=== PATIENT | female | born 1945 | race Caucasian/White ===

== ENCOUNTER → 2018-01-21 08:11 | Outpatient (CLI) | payer MEDICARE, OTHER, SELFPAY ==
--- NOTE | 2018-01-21 | DI.MG.S_ITS ---
BILATERAL DIGITAL SCREENING MAMMOGRAM 3D/2D WITH CAD: 01/21/2018 CLINICAL: Routine screening. Comparison is made to exams dated: 01/18/2017 mammogram, 01/18/2016 mammogram, and 12/11/2014 mammogram - [facility]. The tissue of both breasts is extremely dense, which lowers the sensitivity of mammography. Current study was also evaluated with a Computer Aided Detection (CAD) system. No significant masses, calcifications, or other findings are seen in either breast. There has been no significant interval change. IMPRESSION: NEGATIVE There is no mammographic evidence of malignancy. A 1 year screening mammogram is recommended. This exam was interpreted at Station ID: [id number]. NOTE: For mammograms, a report in lay terms will be sent to the patient. Approximately 15% of breast malignancies will not be visualized mammographically. In the management of a palpable breast mass, a negative mammogram must not discourage biopsy of a clinically suspicious lesion. Electronically Signed By: Rudy franco/rocio:01/21/2018 14:35:03 letter sent: Normal Exam ACR BI-RADS Category 1: Negative 3341F
== END ==
PROVIDERS: Family Provider Internal Medicine; PCP Internal Medicine; Visit Provider Internal Medicine
DX: Z12.31 Encounter for screening mammogram for malignant neoplasm of breast (principal)
CPT/HCPCS: 77063; 77067

== ENCOUNTER → 2018-04-25 09:29 | Outpatient (CLI) | payer MEDICARE, OTHER, SELFPAY ==
--- NOTE | 2018-04-25 | DI.RAD.S_ITS ---
PROCEDURE: XR SKULL<4V INDICATIONS: OTHER ACQUIRED DEFORMITY OF HEAD TECHNIQUE: 3 view(s) of the skull acquired. COMPARISON: None. FINDINGS: Bones: No fractures. No suspicious bony lesions. Mild focal skull thickening in the left frontal area, correlating with palpable abnormality. Visualized sinuses appear clear. Soft tissues: No soft tissue calcifications. No suspicious soft tissue densities. IMPRESSION: Mild focal skull thickening deep to the skin marker, correlating with the palpable abnormality. The finding is likely benign. If there is continued progressive enlargement, further evaluation with CT is suggested. Dictated by: Maria Alejandra Vasquez M.D. on 04/25/2018 at 12:57 Approved by: Maria Alejandra Vasquez M.D. on 04/25/2018 at 13:00
== END ==
PROVIDERS: Family Provider Internal Medicine; PCP Internal Medicine; Visit Provider Internal Medicine
DX: M95.2 Other acquired deformity of head (principal)
CPT/HCPCS: 70250

== ENCOUNTER → 2019-01-28 11:42 | Outpatient (CLI) | payer MEDICARE, OTHER, SELFPAY ==
--- NOTE | 2019-01-28 | DI.MG.S_ITS ---
BILATERAL DIGITAL SCREENING MAMMOGRAM 3D/2D WITH CAD: 01/28/2019 CLINICAL: Routine screening. Comparison is made to exams dated: 01/21/2018 mammogram, 01/18/2017 mammogram, and 01/18/2017 mammogram - [facility]. The tissue of both breasts is extremely dense, which lowers the sensitivity of mammography. Current study was also evaluated with a Computer Aided Detection (CAD) system. No significant masses, calcifications, or other findings are seen in either breast. There has been no significant interval change. IMPRESSION: NEGATIVE There is no mammographic evidence of malignancy. A 1 year screening mammogram is recommended. This exam was interpreted at Station ID: [id number]. NOTE: For mammograms, a report in lay terms will be sent to the patient. Approximately 15% of breast malignancies will not be visualized mammographically. In the management of a palpable breast mass, a negative mammogram must not discourage biopsy of a clinically suspicious lesion. Electronically Signed By: Jose patino/rocio:01/28/2019 18:45:19 letter sent: Normal Exam ACR BI-RADS Category 1: Negative 3341F
== END ==
PROVIDERS: Family Provider Internal Medicine; PCP Internal Medicine; Visit Provider Internal Medicine
DX: Z12.31 Encounter for screening mammogram for malignant neoplasm of breast (principal)
CPT/HCPCS: 77063; 77067

== ENCOUNTER → 2020-01-30 10:58 | Outpatient (CLI) | payer MEDICARE, OTHER, SELFPAY ==
--- NOTE | 2020-01-30 | DI.MG.S_ITS ---
BILATERAL DIGITAL SCREENING MAMMOGRAM 3D/2D WITH CAD: 01/30/2020 CLINICAL: Routine screening. Comparison is made to exams dated: 01/28/2019 mammogram, 01/21/2018 mammogram, and 01/18/2017 mammogram - [facility]. The tissue of both breasts is extremely dense, which lowers the sensitivity of mammography. Current study was also evaluated with a Computer Aided Detection (CAD) system. No significant masses, calcifications, or other findings are seen in either breast. There has been no significant interval change. IMPRESSION: NEGATIVE There is no mammographic evidence of malignancy. A 1 year screening mammogram is recommended. This exam was interpreted at Station ID: [id number]. NOTE: For mammograms, a report in lay terms will be sent to the patient. Approximately 15% of breast malignancies will not be visualized mammographically. In the management of a palpable breast mass, a negative mammogram must not discourage biopsy of a clinically suspicious lesion. Electronically Signed By: Gibran Oviedo M.D., jr/rocio:01/30/2020 14:03:26 letter sent: Normal Exam ACR BI-RADS Category 1: Negative 3341F
== END ==
PROVIDERS: Family Provider Internal Medicine; PCP Internal Medicine; Referring Provider Internal Medicine; Visit Provider Internal Medicine
DX: Z12.31 Encounter for screening mammogram for malignant neoplasm of breast (principal)
CPT/HCPCS: 77063; 77067

== ENCOUNTER → 2020-09-24 18:37 | Outpatient (ROUT) | payer MEDICARE, OTHER, SELFPAY ==
[2020-09-24 19:18] LABS: HEMOLYSIS < 15 (0-50); Potassium 4.2 mmol/L (3.4-5.1)
[2020-09-24 19:19] LABS: Aspartate Aminotransferase 33 IU/L (14-36); BUN Creatinine Ratio 30.4 (6-22); Blood Urea Nitrogen 17 mg/dL (7-17); Carbon Dioxide 32 mmol/L (22-32); Chloride 99 mmol/L (98-107); Cholesterol 143 mg/dL (140-199); Estimated Glomerular Filt Rate > 60.0 mL/min (>60); Glucose 115 mg/dL (80-110); HDL Cholesterol 71 mg/dL (40-60); LDL Cholesterol Calculated 60 mg/dL (<100); Sodium 139 mmol/L (137-145); Triglycerides 59 mg/dL (35-150)
[2020-09-24 19:42] LABS: TSH w/ Reflex to FT4 1.18 uIU/mL (0.47-4.68)
== END ==
PROVIDERS: Family Provider Internal Medicine; PCP Internal Medicine; Visit Provider Internal Medicine
DX: E78.2 Mixed hyperlipidemia (principal)
CPT/HCPCS: 80048; 80061; 84443; 84450

== ENCOUNTER → 2020-10-15 09:39 | Outpatient (CLI) | payer MEDICARE, OTHER, SELFPAY | PROVIDERS: Family Provider Internal Medicine; PCP Internal Medicine; Referring Provider Internal Medicine; Visit Provider Internal Medicine | DX: M85.851 Other specified disorders of bone density and structure, right thigh (principal); Z78.0 Asymptomatic menopausal state | CPT/HCPCS: 77080 ==

== ENCOUNTER → 2020-11-25 07:09 | Outpatient (CLI) | payer MEDICARE, OTHER, SELFPAY ==
[2020-11-25 08:00] LABS: BUN Creatinine Ratio 22.8 (6-22); Blood Urea Nitrogen 13 mg/dL (7-17); Calcium 9.2 mg/dL (8.4-10.2); Carbon Dioxide 32 mmol/L (22-32); Chloride 97 mmol/L (98-107); Estimated Glomerular Filt Rate > 60.0 mL/min (>60); Glucose 91 mg/dL (80-110); HEMOLYSIS < 15 (0-50); Potassium 3.9 mmol/L (3.4-5.1); Sodium 135 mmol/L (137-145)
== END ==
PROVIDERS: Family Provider Internal Medicine; PCP Internal Medicine; Referring Provider Internal Medicine; Visit Provider Internal Medicine
DX: E78.2 Mixed hyperlipidemia (principal)
CPT/HCPCS: 80048

== ENCOUNTER → 2021-02-15 14:42 | Outpatient (CLI) | payer MEDICARE, OTHER, SELFPAY ==
--- NOTE | 2021-02-15 14:45 | DI.MG.S_ITS ---
BILATERAL DIGITAL SCREENING MAMMOGRAM 3D/2D WITH CAD: 02/15/2021 CLINICAL: Routine screening. Comparison is made to exams dated: 01/30/2020 mammogram, 01/28/2019 mammogram, and 01/21/2018 mammogram - [facility]. The tissue of both breasts is extremely dense, which lowers the sensitivity of mammography. Current study was also evaluated with a Computer Aided Detection (CAD) system. No significant masses, calcifications, or other findings are seen in either breast. There has been no significant interval change. IMPRESSION: NEGATIVE There is no mammographic evidence of malignancy. A 1 year screening mammogram is recommended. This exam was interpreted at Station ID: [id number]. NOTE: For mammograms, a report in lay terms will be sent to the patient. Approximately 15% of breast malignancies will not be visualized mammographically. In the management of a palpable breast mass, a negative mammogram must not discourage biopsy of a clinically suspicious lesion. Electronically Signed By: Ambrosio hartmann/rocio:02/15/2021 16:19:30 letter sent: Normal Exam ACR BI-RADS Category 1: Negative 3341F
== END ==
PROVIDERS: PCP Internal Medicine; Referring Provider Internal Medicine; Visit Provider Internal Medicine
DX: Z12.31 Encounter for screening mammogram for malignant neoplasm of breast (principal)
CPT/HCPCS: 77063; 77067

== ENCOUNTER → 2021-12-16 09:47 | Outpatient (CLI) | payer MEDICARE, OTHER, SELFPAY ==
[2021-12-16 10:19] LABS: Hematocrit 38.5 % (36-46); Hemoglobin 12.9 g/dL (12.0-16.0); Mean Corpuscular HGB Conc 33.6 % (30-36); Mean Corpuscular Hemoglobin 30.6 PG (26-34); Mean Corpuscular Volume 91.2 fL (80-100); Platelet Count 219 X10^3/uL (150-400); Red Blood Cell Count 4.22 X10^6/uL (4.0-5.2); Red Cell Distribution Width 13.8 % (11.6-14.8); White Blood Cell Count 6.4 X10^3/uL (4.5-11.0)
[2021-12-16 11:11] LABS: Alanine Aminotransferase 20 IU/L (<35); Albumin 4.1 g/dL (3.5-5.0); Albumin Globulin Ratio 1.3 (1.0-2.8); Alkaline Phosphatase 56 U/L (38-126); Aspartate Aminotransferase 27 IU/L (14-36); BUN Creatinine Ratio 31.7 (6-22); Bilirubin Total 0.4 mg/dL (0.2-1.3); Blood Urea Nitrogen 19 mg/dL (7-17); Calcium 9.2 mg/dL (8.4-10.2); Carbon Dioxide 31 mmol/L (22-32); Chloride 100 mmol/L (98-107); Cholesterol 136 mg/dL (140-199); Estimated Glomerular Filt Rate > 60 mL/min (>60); Globulin 3.1 g/dL (1.7-4.1); Glucose 82 mg/dL (80-110); HDL Cholesterol 67 mg/dL (40-60); HEMOLYSIS < 15 (0-50); LDL Cholesterol Calculated 57 mg/dL (<100); Potassium 4.1 mmol/L (3.4-5.1); Sodium 137 mmol/L (137-145); Total Protein 7.2 g/dL (6.3-8.2); Triglycerides 61 mg/dL (35-150)
[2021-12-16 11:49] LABS: TSH w/ Reflex to FT4 1.11 uIU/mL (0.47-4.68)
== END ==
PROVIDERS: PCP Internal Medicine; Referring Provider Internal Medicine; Visit Provider Internal Medicine
DX: E78.2 Mixed hyperlipidemia (principal); M85.80 Other specified disorders of bone density and structure, unspecified site
CPT/HCPCS: 36415; 80053; 80061; 84443; 85027

== ENCOUNTER → 2022-02-23 07:56 | Outpatient (CLI) | payer MEDICARE, OTHER, SELFPAY ==
--- NOTE | 2022-02-23 | DI.MG.S_ITS ---
BILATERAL DIGITAL SCREENING MAMMOGRAM 3D/2D WITH CAD: 02/23/2022 CLINICAL: Routine screening. Comparison is made to exams dated: 02/15/2021 mammogram, 01/30/2020 mammogram, and 01/28/2019 mammogram - [facility]. Both breasts are extremely dense, which lowers the sensitivity of mammography (category d />75% glandular tissue). Current study was also evaluated with a Computer Aided Detection (CAD) system. No significant masses, calcifications, or other findings are seen in either breast. There has been no significant interval change. IMPRESSION: NEGATIVE There is no mammographic evidence of malignancy. A 1 year screening mammogram is recommended. Based on the Tyrer Cuzick model (a risk assessment model) the patient's lifetime risk is 6.8% and her 10 year risk is 0.0%. According to the ACR, ACS, and NCCN guidelines, an annual breast MRI exam along with mammogram is recommended if the patient's lifetime risk is 20% or greater. This exam was interpreted at Station ID: [id number]. NOTE: For mammograms, a report in lay terms will be sent to the patient. Approximately 15% of breast malignancies will not be visualized mammographically. In the management of a palpable breast mass, a negative mammogram must not discourage biopsy of a clinically suspicious lesion. Electronically Signed By: June gallardo/rocio:02/23/2022 09:51:47 letter sent: Normal Exam ACR BI-RADS Category 1: Negative 3341F
== END ==
PROVIDERS: PCP Internal Medicine; Referring Provider Internal Medicine; Visit Provider Internal Medicine
DX: Z12.31 Encounter for screening mammogram for malignant neoplasm of breast (principal)
CPT/HCPCS: 77063; 77067

== ENCOUNTER → 2022-06-08 09:12 | Outpatient (CLI) | payer MEDICARE, OTHER, SELFPAY ==
[2022-06-08 12:02] LABS: Alanine Aminotransferase 25 IU/L (<35); Albumin 4.3 g/dL (3.5-5.0); Albumin Globulin Ratio 1.2 (1.0-2.8); Alkaline Phosphatase 75 U/L (38-126); Aspartate Aminotransferase 32 IU/L (14-36); BUN Creatinine Ratio 22.2 (6-22); Bilirubin Total 0.6 mg/dL (0.2-1.3); Blood Urea Nitrogen 12 mg/dL (7-17); Calcium 10.4 mg/dL (8.4-10.2); Carbon Dioxide 31 mmol/L (22-32); Chloride 98 mmol/L (98-107); Estimated Glomerular Filt Rate > 60 mL/min (>60); Globulin 3.5 g/dL (1.7-4.1); Glucose 83 mg/dL (80-110); HEMOLYSIS < 15 (0-50); Potassium 4.4 mmol/L (3.4-5.1); Sodium 136 mmol/L (137-145); Total Protein 7.8 g/dL (6.3-8.2)
[2022-06-08 12:17] LABS: Vitamin D 25 Hydroxy (D3) 56.6 ng/mL (30.0-100.0)
== END ==
PROVIDERS: PCP Internal Medicine; Referring Provider Internal Medicine; Visit Provider Internal Medicine
DX: E55.9 Vitamin D deficiency, unspecified (principal); M85.89 Other specified disorders of bone density and structure, multiple sites
CPT/HCPCS: 36415; 80053; 82306

== ENCOUNTER → 2022-07-17 11:40 | Outpatient (CLI) | payer MEDICARE, OTHER, SELFPAY ==
[2022-07-17 12:54] LABS: BUN Creatinine Ratio 26.2 (6-22); Blood Urea Nitrogen 16 mg/dL (7-17); Calcium 9.4 mg/dL (8.4-10.2); Carbon Dioxide 31 mmol/L (22-32); Chloride 99 mmol/L (98-107); Estimated Glomerular Filt Rate > 60 mL/min (>60); Glucose 98 mg/dL (80-110); HEMOLYSIS < 15 (0-50); Sodium 138 mmol/L (137-145)
== END ==
PROVIDERS: PCP Internal Medicine; Referring Provider Internal Medicine; Visit Provider Internal Medicine
DX: E78.2 Mixed hyperlipidemia (principal); M85.89 Other specified disorders of bone density and structure, multiple sites
CPT/HCPCS: 36415; 80048

== ENCOUNTER 2022-12-11 11:18 | Day surgery (SDC) | payer MEDICARE, OTHER, SELFPAY ==
--- NOTE | 2022-12-11 | PATH_ITS ---
[facility] Accession Number: [id number] No. of containers..01 Tissue . 01 Material submitted: . colon - TRANSVERSE COLON POLYP . 01 Diagnosis: Transverse Colon, Polypectomy: Tubular adenoma, two fragments. MRV 12/15/2022 1513 Local . 01 Electronically signed: . Latricia Alonso MD, Pathologist NPI- [id number] . 01 Gross description: . The specimen is received in formalin labeled with the patient's name, , and transverse polyp consists of two hernandez soft tissue fragments measuring 0.2 cm each in greatest dimension. Submitted entirely in cassette A1. ([id number]) /MRV 12/13/2022 1830 Local . 01 Pathologist provided ICD-10: D12.3 . 01 CPT . 525014 Specimen Comment: A courtesy copy of this report has been sent to [phone] Performed at: 01 [facility] [address] [place] [address] Suite [facility] [place], [place], [place] [id number] MD Mohinder Zamora MD Phone: [phone]
[2022-12-11 11:50] VITALS: BMI 24.9
[2022-12-11 11:57] VITALS: BP 128/70; PULSE 83; RESP 17; TEMP 36.9; O2SAT 97
[2022-12-11] MEDS: LACTATED RINGERS 1,000 ML 42 ML IV (12:06)
--- NOTE | 2022-12-11 12:07 | P.HP_ITS ---
History of Present Illness History of Present Illness Date Patient Seen: 12/11/22 Time Patient Seen: 12:07 Chief complaint: SDC Narrative: Family history of colon cancer personal history of colon polyps here for colonoscopy today [facility] Medical History Allergic rhinitis Chronic low back pain Family history of colon cancer Glaucoma History of colonic polyps Menopausal syndrome Mixed hyperlipidemia Osteopenia Right rotator cuff tendonitis Family History Father Cancer Mother Cancer Brother Parkinson's disease Social History Smoking Status: Never smoker alcohol intake: current Meds Home Medications and Allergies Home Medications Medication Instructions Recorded Confirmed Type ascorbic acid (vitamin C) 1,000 mg 1,000 mg PO DAILY 12/15/21 12/11/22 History tablet carboxymethylcellulose sodium 1 % 1 drp EYE-BOTH BEDTIME 12/15/21 12/11/22 History eye gel in a dropperette (Refresh Celluvisc) cholecalciferol (vitamin D3) 50 50 mcg PO DAILY 12/15/21 12/11/22 History mcg (2,000 unit) capsule cyanocobalamin (vitamin B-12) 1,000 mcg PO DAILY 12/15/21 12/11/22 History 1,000 mcg capsule cyclosporine 0.05 % eye drops in a 1 drp EYE-BOTH BID 12/15/21 12/11/22 History dropperette (Restasis) docusate sodium 100 mg capsule 100 mg PO DAILY 12/15/21 12/11/22 History (Stool Softener) eyelid cleanser combination 7 1 applic topical DAILY 12/15/21 12/11/22 History (Ocusoft Lid Scrub Original topical foam) flaxseed oil 1,000 mg capsule 1,000 mg PO DAILY 12/15/21 12/11/22 History multivitamin 1 tab PO DAILY 12/15/21 12/11/22 History peg 400-propylene glycol 0.4 %-0.3 1 drp EYE-BOTH DAILY PRN Dry Eyes 12/15/21 12/11/22 History % eye drops (Systane (propylene glycol)) rosuvastatin 10 mg tablet See Rx Instructions .Route 04/03/22 12/11/22 Rx .COMPLEX #90 tabs triamcinolone acetonide 0.5 % 1 applic topical 3XW 06/08/22 12/11/22 History topical cream estradiol 0.01% (0.1 mg/gram) 1 appful vaginal 2XW #42.5 grams 11/16/22 12/11/22 Rx vaginal cream Allergies Allergy/AdvReac Type Severity Reaction Status Date / Time amoxicillin [AMOXICILLIN] Allergy Unknown Rash Verified 12/11/22 11:46 Review of Systems Review of Systems ROS: Yes All systems reviewed with the patient and are negative except as otherwise documented Exam Vital Signs (past 8 hours): - 12/11/22 11:57 Temperature 98.5 F Pulse Rate 83 Respiratory Rate 17 Blood Pressure 128/70 Pulse Oximetry 97 Const General: cooperative HENMT Head: normal to inspection Eyes General: appearance normal, both eyes and all related structures Neck Neck: normal visual inspection Chest Chest: normal inspection of the chest Resp Effort & Inspection: normal respiratory effort Cardio Rate: regular rate GI Inspection: normal to inspection Skin General: no rashes or lesions noted Neuro General: patient alert and patient awake Extrem General: normal to inspection and no pedal edema Psych Appearance: grossly normal Assessment & Plan Assessment & Plan narrative: 76-year-old female with a family history of colon cancer and a personal history of colon polyps. Colonoscopy is pursued today.
--- NOTE | 2022-12-11 12:08 | PM.PREOP ---
Pre-operative Note Interval Note History & Physical reviewed/Exam performed by Physician: Yes Changes to H&P: No ASA Class (for procedural sedation): II
--- NOTE | 2022-12-11 13:17 | PM.OP.COLON ---
Operative Date/Time/Diagnoses Date of procedure: 12/11/22 Time of procedure: 13:17 Pre-op diagnosis: Personal history of colon polyps family history of colon cancer. Post-op diagnosis: same Procedure & Clinicians Study performed: Colonoscopy with cold forceps polypectomy Same procedure as scheduled: Yes Indications: Personal history of colon polyps family history of colon cancer. Surgeon: Dario Sanchez Procedure Notes SCOAP/Timeout: Done Procedure in detail: After the risks and benefits were explained, written and verbal informed consent was obtained. The patient was brought into the procedure room and placed into the left lateral decubitus position. Please see anesthesia notes for sedation details. Digital rectal examination was accomplished. The scope was introduced into the patient and advanced under direct visualization to the cecum as identified by the appendiceal orifice and ileocecal valve. The scope was slowly withdrawn to carefully examine the mucosa for any defects or lesions. Comprehensive imaging was accomplished throughout the rectum including the dentate line. The colon was decompressed, the scope was then removed from the patient who tolerated the procedure well. Pediatric colonoscope Bowel prep adequate Scope withdrawal time: 7 minutes Sedation minutes: 20 Complications: none Impression: The patient had extensive diverticulosis all through the sigmoid. The colon was moderately tortuous and navigation was somewhat challenging. In the ascending colon there was a diminutive 4 mm polyp removed with cold forceps. No other significant pathology was appreciated throughout. Endoscopic diagnosis 1. Small colon polyp 2. Diverticulosis Post-procedure Plan for aftercare: 1. Await histopathology. 2. Consider repeat colonoscopy 5 years in light of family history. Disposition: PACU
[2022-12-11 13:21] VITALS: BP 90/44; PULSE 60; RESP 15; TEMP 36.7; O2SAT 95
[2022-12-11 13:26] VITALS: BP 100/46; PULSE 61; RESP 11; TEMP 36.7; O2SAT 97
[2022-12-11 13:33] VITALS: BP 115/45; PULSE 62; RESP 19; TEMP 36.7; O2SAT 99
[2022-12-11 13:38] VITALS: BP 123/58; PULSE 61; RESP 14; O2SAT 97
[2022-12-11 13:48] VITALS: BP 131/69; PULSE 62; RESP 18; TEMP 36.7; O2SAT 97
== END 2022-12-11 13:53 | disposition home or self-care (01) ==
PROVIDERS: PCP Internal Medicine; Referring Provider Internal Medicine Gastroenterology; Visit Provider Internal Medicine Gastroenterology
PROC: 0DJD8ZZ Inspection of Lower Intestinal Tract, Via Natural or Artificial Opening Endoscopic (ICD-10-PCS; CPT 45378; principal; 2022-12-11 12:30)
DX: Z12.11 Encounter for screening for malignant neoplasm of colon (principal); Z86.010 Personal history of colon polyps; Z80.0 Family history of malignant neoplasm of digestive organs; K57.30 Diverticulosis of large intestine without perforation or abscess without bleeding; D12.3 Benign neoplasm of transverse colon
CPT/HCPCS: 45380; J2704

== ENCOUNTER → 2022-12-22 08:07 | Outpatient (CLI) | payer MEDICARE, OTHER, SELFPAY ==
[2022-12-22 09:33] LABS: Aspartate Aminotransferase 28 IU/L (14-36); BUN Creatinine Ratio 18.2 (6-22); Blood Urea Nitrogen 10 mg/dL (7-17); Calcium 8.8 mg/dL (8.4-10.2); Carbon Dioxide 30 mmol/L (22-32); Chloride 98 mmol/L (98-107); Cholesterol 139 mg/dL (140-199); Estimated Glomerular Filt Rate > 60 mL/min (>60); Glucose 84 mg/dL (80-110); HDL Cholesterol 60 mg/dL (40-60); HEMOLYSIS < 15 (0-50); LDL Cholesterol Calculated 68 mg/dL (<100); Potassium 4.4 mmol/L (3.4-5.1); Sodium 133 mmol/L (137-145); Triglycerides 57 mg/dL (35-150)
== END ==
PROVIDERS: PCP Internal Medicine; Referring Provider Internal Medicine; Visit Provider Internal Medicine
DX: E78.2 Mixed hyperlipidemia (principal); M85.80 Other specified disorders of bone density and structure, unspecified site
CPT/HCPCS: 36415; 80048; 80061; 84450

== ENCOUNTER → 2023-02-27 | Outpatient (CLI) | payer MEDICARE, OTHER, SELFPAY ==
--- NOTE | 2023-02-27 | DI.MG.S_ITS ---
BILATERAL DIGITAL SCREENING MAMMOGRAM 3D/2D WITH CAD: 02/27/2023 CLINICAL: Routine screening. Comparison is made to exams dated: 02/23/2022 mammogram, 02/15/2021 mammogram, and 01/30/2020 mammogram - [facility]. Both breasts are extremely dense, which lowers the sensitivity of mammography (category d />75% glandular tissue). Current study was also evaluated with a Computer Aided Detection (CAD) system. There are benign calcifications in both breasts. No significant masses, calcifications, or other findings are seen in either breast. There has been no significant interval change. IMPRESSION: BENIGN There is no mammographic evidence of malignancy. A 1 year screening mammogram is recommended. Based on the Tyrer Cuzick model (a risk assessment model) the patient's lifetime risk is 5.9% and her 10 year risk is 0.0%. According to the ACR, ACS, and NCCN guidelines, an annual breast MRI exam along with mammogram is recommended if the patient's lifetime risk is 20% or greater. This exam was interpreted at Station ID: [id number]. NOTE: For mammograms, a report in lay terms will be sent to the patient. Approximately 15% of breast malignancies will not be visualized mammographically. In the management of a palpable breast mass, a negative mammogram must not discourage biopsy of a clinically suspicious lesion. Electronically Signed By: Edgar horne/rocio:03/04/2023 14:02:19 letter sent: Normal Exam ACR BI-RADS Category 2: Benign Finding(s) 3342F
== END ==
LOC: MAMMO 08:12
PROVIDERS: PCP Internal Medicine; Referring Provider Internal Medicine; Visit Provider Internal Medicine
DX: Z12.31 Encounter for screening mammogram for malignant neoplasm of breast (principal)
CPT/HCPCS: 77063; 77067

== ENCOUNTER 2023-05-06 19:11 | Emergency (ER) | payer MEDICARE, OTHER, SELFPAY ==
[2023-05-06 19:21] VITALS: BP 185/75; PULSE 79; RESP 20; TEMP 36.8; O2SAT 98; BMI 25.7
[2023-05-06 19:58] LABS: Bacteria Urine Moderate (10-30); Culture Indicated Urine Specimen Cultured; RBC Urine >100/HPF (0-5/HPF); Squamous Epithelial Cell Urine 0-1 /HPF (0-5/HPF); Transitional Epi Cells Urine 1-5/HPF (0-5/HPF); WBC Urine 30-100/HPF (0-5/HPF)
[2023-05-06 21:28] VITALS: BP 150/68; PULSE 75; TEMP 36.4; O2SAT 98
[2023-05-06] MEDS: CEFDINIR 300 MG CAPSULE PO (21:31)
--- NOTE | 2023-05-07 00:09 | ED_ITS ---
HPI - Female Genitourinary General Chief complaint: Urogenital-Female Stated complaint: THINKS POSS UTI Time Seen by Provider: 05/06/23 21:11 Source: patient Mode of arrival: Ambulatory History of Present Illness HPI Narrative: 77-year-old female with history of occasional urinary tract infections in the past presenting with dysuria urgency and frequency beginning today. She does not have any fever she does not have flank pain vomiting or shaking chills. She is not noted any blood in her urine. Related Data Home Medications Medication Instructions Recorded Confirmed ascorbic acid (vitamin C) 1,000 mg 1,000 mg PO DAILY 12/15/21 12/18/22 tablet carboxymethylcellulose sodium 1 % 1 drp EYE-BOTH BEDTIME 12/15/21 12/18/22 eye gel in a dropperette (Refresh Celluvisc) cholecalciferol (vitamin D3) 50 50 mcg PO DAILY 12/15/21 12/18/22 mcg (2,000 unit) capsule cyanocobalamin (vitamin B-12) 1,000 mcg PO DAILY 12/15/21 12/18/22 1,000 mcg capsule cyclosporine 0.05 % eye drops in a 1 drp EYE-BOTH BID 12/15/21 12/18/22 dropperette (Restasis) docusate sodium 100 mg capsule 100 mg PO DAILY 12/15/21 12/18/22 (Stool Softener) eyelid cleanser combination 7 1 applic topical DAILY 12/15/21 12/18/22 (Ocusoft Lid Scrub Original topical foam) flaxseed oil 1,000 mg capsule 1,000 mg PO DAILY 12/15/21 12/18/22 multivitamin 1 tab PO DAILY 12/15/21 12/18/22 peg 400-propylene glycol 0.4 %-0.3 1 drp EYE-BOTH DAILY PRN Dry Eyes 12/15/21 12/18/22 % eye drops (Systane (propylene glycol)) triamcinolone acetonide 0.5 % 1 applic topical 3XW 06/08/22 12/18/22 topical cream Previous Rx's Medication Instructions Recorded estradiol 0.01% (0.1 mg/gram) 1 appful vaginal 2XW #42.5 grams 12/18/22 vaginal cream rosuvastatin 10 mg tablet See Rx Instructions .Route 09/27/23 .COMPLEX #90 tabs cephalexin 500 mg capsule 500 mg PO QID 5 days #20 caps 05/06/23 Allergies Allergy/AdvReac Type Severity Reaction Status Date / Time amoxicillin [AMOXICILLIN] Allergy Unknown Rash Verified 05/06/23 19:29 Patient History Medical History Allergic rhinitis Chronic low back pain Family history of colon cancer Glaucoma History of colonic polyps Menopausal syndrome Mixed hyperlipidemia Osteopenia Right rotator cuff tendonitis Family History Father Cancer Mother Cancer Brother Parkinson's disease alcohol intake frequency: a few times a week Substance Use Type: does not use Exam Initial Vital Signs Initial Vital Signs: Vital Signs Temperature 98.3 F 05/06/23 19:21 Pulse Rate 79 05/06/23 19:21 Respiratory Rate 20 05/06/23 19:21 Blood Pressure 185/75 H 05/06/23 19:21 Pulse Oximetry 98 05/06/23 19:21 Oxygen Delivery Method Room Air 05/06/23 19:21 Const General: cooperative HENMT Head: normocephalic and atraumatic Teeth and gingiva: dentition normal Eyes Pupils: PERRL EOM: EOM intact bilaterally Chest Chest: normal inspection of the chest Resp Effort & Inspection: normal respiratory effort and able to speak in complete sentences Cardio Rate: regular rate GI Inspection: non-distended Palpation: soft, No guarding, No pulsatile mass and No tender Auscultation: normal bowel sounds Back/Spine/Pelvis Back: No CVA tenderness Cervical Spine: cervical ROM normal Thoracic/Lumbar Spine: thoracic and lumbar spine normal to inspection Skin General: no rashes or lesions noted Neuro General: patient alert and patient oriented x3 Extrem General: full ROM Psych Appearance: well kempt Mental Status: mental status grossly normal Attitude: cooperative Course Orders Ordered: ED Orders 05/06/23 19:33 Urine Culture Stat Urine Microscopic Stat Discontinued Medications Cefdinir (Cefdinir 300 Mg Capsule) 300 mg PO NOW ONE Stop: 05/06/23 21:19 Last Admin: 05/06/23 21:31 Dose: 300 mg Documented By: HNG Vital Signs Vital signs: Vital Signs - 8 hr 05/06/23 19:21 05/06/23 21:28 Temperature 98.3 F 97.6 F Pulse Rate 79 75 Respiratory Rate 20 Blood Pressure 185/75 H 150/68 H Pulse Oximetry 98 98 Oxygen Delivery Method Room Air Room Air MDM - Female Genitourinary Lab Data Lab results narrative: Urinalysis shows pyuria and bacteriuria as well as red cells consistent with infection Labs: Lab Results 05/06/23 Range/Units 19:33 Urine RBC >100/hpf H (0-5/HPF) Urine WBC 30-100/hpf H (0-5/HPF) Ur Squamous Epith Cells 0-1 /hpf (0-5/HPF) Ur Transition Epith Cell 1-5/hpf (0-5/HPF) Urine Bacteria Moderate (10-30) H (None) Ur Culture Indicated? Specimen cultured Urine Dip Bedside Urine Glucose Negative Bedside Urine Bilirubin - Negative Bedside Urine Ketone - Negative Urine Specific [place] 1.010 Bedside Urine Occult Blood +++ Bedside Urine pH 7.5 Bedside Urine Protein +/- 15 Bedside Urine Urobilinogen - Negative Bedside Urine Nitrite - Negative Bedside Urine Leukocytes +++ 500 Esterase MDM Narrative Medical decision making narrative: 77-year-old female who enjoys good health. She presents today with urinary symptoms without evidence of systemic illness, I considered but do not suspect pyelonephritis or ureteral stone. I have empirically started her on antibiotics urine culture is pending. Indications for return to the emergency department were reviewed. Discharge Plan Departure Patient Disposition: Home Clinical Impression: Urinary tract infection Instructions: DI for Urinary Tract Infection (UTI) Activity Restrictions/Additional Instructions: We are treating you tonight for urinary tract infection. We have started antibiotics here in the emergency department and I have sent a prescription for an antibiotic here pharmacy. Take the full prescribed course. If you are having fevers flank pain vomiting shaking chills or other acute symptoms recheck in the emergency department. It is safe to use the as though that you already have for symptoms of dysuria until the antibiotic works which should be within 24 hours. I recommend you follow-up soon with your primary care provider for a recheck. Prescriptions: New cephalexin 500 mg capsule 500 mg PO QID 5 Days Qty: 20 0RF No Action rosuvastatin 10 mg tablet See Rx Instructions .ROUTE .COMPLEX Qty: 90 3RF Dose Instruction: TAKE ONE TABLET BY MOUTH ONE TIME DAILY Rx Instructions: TAKE ONE TABLET BY MOUTH ONE TIME DAILY cyclosporine [Restasis] 0.05 % dropperette 1 drp EYE-BOTH BID Patient Comments: Instill one drop into both eyes twice daily. cholecalciferol (vitamin D3) 50 mcg (2,000 unit) capsule 50 mcg PO DAILY multivitamin Tablet 1 tab PO DAILY Ocusoft Lid Scrub Original Foam 1 applic topical DAILY carboxymethylcellulose sodium [Refresh Celluvisc] 1 % dropperette,gel 1 drp EYE-BOTH BEDTIME docusate sodium [Stool Softener] 100 mg capsule 100 mg PO DAILY Systane (propylene glycol) 0.4-0.3 % drops 1 drp EYE-BOTH DAILY PRN (Reason: Dry Eyes) ascorbic acid (vitamin C) 1,000 mg tablet 1,000 mg PO DAILY cyanocobalamin (vitamin B-12) 1,000 mcg capsule 1,000 mcg PO DAILY flaxseed oil 1,000 mg capsule 1,000 mg PO DAILY Rx Instructions: administer with a meal triamcinolone acetonide 0.5 % cream 1 applic topical 3XW Patient Comments: P Rx Instructions: BID times twice weekly estradiol 0.01 % (0.1 mg/gram) cream 1 appful vaginal 2XW Qty: 42.5 3RF Referrals: Carl Farias MD [Primary Care Provider] - Stand Alone Forms: Patient Portal/API
== END 2023-05-06 21:41 | disposition home or self-care (01) ==
PROVIDERS: Emergency Provider Emergency Medicine; PCP Internal Medicine
DX: N39.0 Urinary tract infection, site not specified (principal)
CPT/HCPCS: 81003; 81015; 87077; 87086; 87186; 99283

== ENCOUNTER → 2023-11-23 14:23 | Outpatient (CLI) | payer MEDICARE, OTHER, SELFPAY ==
--- NOTE | 2023-11-23 14:24 | DI.RAD.S_ITS ---
PROCEDURE: XR FOOT LT MIN 3V INDICATIONS: Left foot pain/injury TECHNIQUE: 3 views of the foot were acquired. COMPARISON: None. FINDINGS: Bones: There is a minimally displaced fracture through the 4th left metatarsal diaphysis. No other fracture or dislocation. Soft tissues: No tibiotalar joint effusion. Achilles tendon appears normal. IMPRESSION: 4th metatarsal fracture. Dictated by: June Ying M.D. on 11/23/2023 at 15:08 Approved by: June Ying M.D. on 11/23/2023 at 15:09
== END ==
PROVIDERS: PCP Internal Medicine; Referring Provider Physician Assistant Surgical; Visit Provider Physician Assistant Surgical
DX: S92.345A Nondisplaced fracture of fourth metatarsal bone, left foot, initial encounter for closed fracture (principal); M79.672 Pain in left foot; X58.XXXA Exposure to other specified factors, initial encounter
CPT/HCPCS: 73630

== ENCOUNTER → 2023-12-17 12:09 | Outpatient (CLI) | payer MEDICARE, OTHER, SELFPAY ==
--- NOTE | 2023-12-17 12:11 | DI.RAD.S_ITS ---
PROCEDURE: XR DEXA AXIAL SKELETON INDICATIONS: osteopenia COMPARISON: [facility], CR, XR DEXA AXIAL SKELETON, 10/15/2020, 10:00. FINDINGS: Lumbar Spine: Bone mineral density 0.985 g/cm2, T score -0.4, unchanged. Left Hip: Bone mineral density 0.83 g/cm2, T score -0.9, compared to -0.8. Left Femoral Neck: Bone mineral density 0.687 g/cm2, T score -1.5, compared to -1.7. Right Hip: Bone mineral density 0.839 g/cm2, T score -0.8, compared to -0.9. Right Femoral Neck: Bone mineral density 0.653 g/cm2, T score -1.8, compared to -1.9. Fracture Risk Calculation (when applicable): 10-year fracture risk of a major osteoporotic fracture 15% and of a hip fracture 3.8%, compared to 14.1% and 3.7% respectively. (T score greater or equal to -1.0 to: NORMAL) (T score from -1.1 to -2.4: OSTEOPENIA) (T score less than or equal to -2.5: OSTEOPOROSIS) IMPRESSION: Osteopenia remains the most prominent in the right femoral neck relatively stable. Follow-up guidelines as follows: Osteoporosis: Consider a repeat DEXA and Vertebral Fracture Assessment (VFA) exam in 2 years or sooner if medically necessary, to reassess this patient's status. Osteopenia: Consider a repeat DEXA in 2-3 years to reassess this patient's status, or if there is a new clinical indication. Normal: Consider a repeat DEXA in 5 years or sooner, or if there is a new clinical indication. All treatment decisions require clinical judgment and consideration of individual patient factors, including patient preferences, comorbidities, previous drug use, risk factors not captured in the FRAX model (e.g., frailty, falls, vitamin D deficiency, increased bone turnover, interval significant decline in bone density ) and possible under- or over-estimation of fracture risk by FRAX. In addition, the NOF Guide recommends that FDA-approved medical therapies be considered in postmenopausal women and men age >= 50 years with a: * Hip or vertebral (clinical or morphometric) fracture * T-score of <=-2.5 at the spine or hip * Ten-year fracture probability by FRAX of >= 3% for hip fracture or >=20% for major osteoporotic fracture. People with diagnosed cases of osteoporosis or at high risk for fracture should have regular bone mineral density tests. For patients eligible for Medicare, routine testing is allowed once every 2 years. The testing frequency can be increased to one year for patients who have rapidly progressing disease, those who are receiving or discontinuing medical therapy to restore bone mass, or have additional risk factors. Dictated by: Lesly Quigley M.D. on 12/17/2023 at 17:27 Approved by: Lesly Quigley M.D. on 12/17/2023 at 17:29
== END ==
PROVIDERS: PCP Internal Medicine; Referring Provider Internal Medicine; Visit Provider Internal Medicine
DX: M85.89 Other specified disorders of bone density and structure, multiple sites (principal); Z78.0 Asymptomatic menopausal state
CPT/HCPCS: 77080

== ENCOUNTER → 2023-12-20 09:54 | Outpatient (CLI) | payer MEDICARE, OTHER, SELFPAY ==
[2023-12-20 11:20] LABS: Aspartate Aminotransferase 33 IU/L (14-36); BUN Creatinine Ratio 33.9 (6-22); Blood Urea Nitrogen 21 mg/dL (7-17); Calcium 9.4 mg/dL (8.4-10.2); Carbon Dioxide 32 mmol/L (22-32); Chloride 101 mmol/L (98-107); Cholesterol 140 mg/dL (140-199); Estimated Glomerular Filt Rate > 60 mL/min (>60); Glucose 85 mg/dL (80-110); HDL Cholesterol 70 mg/dL (40-60); HEMOLYSIS < 15 (0-50); LDL Cholesterol Calculated 51 mg/dL (<100); Potassium 4.2 mmol/L (3.4-5.1); Sodium 137 mmol/L (137-145); Triglycerides 95 mg/dL (35-150)
== END ==
PROVIDERS: PCP Internal Medicine; Referring Provider Internal Medicine; Visit Provider Internal Medicine
DX: E78.2 Mixed hyperlipidemia (principal); M85.80 Other specified disorders of bone density and structure, unspecified site
CPT/HCPCS: 36415; 80048; 80061; 84450

== ENCOUNTER → 2024-03-05 07:59 | Outpatient (CLI) | payer MEDICARE, OTHER, SELFPAY ==
--- NOTE | 2024-03-05 | DI.MG.S_ITS ---
BILATERAL DIGITAL SCREENING MAMMOGRAM 3D/2D WITH CAD: 03/05/2024 CLINICAL: Routine screening. Comparison is made to exams dated: 02/27/2023 mammogram, 02/23/2022 mammogram, and 02/15/2021 mammogram - [facility]. The breasts are extremely dense, which lowers the sensitivity of mammography (category d />75% glandular tissue). Current study was also evaluated with a Computer Aided Detection (CAD) system. No significant masses, calcifications, or other findings are seen in either breast. There has been no significant interval change. IMPRESSION: NEGATIVE There is no mammographic evidence of malignancy. A 1 year screening mammogram is recommended. Based on the Tyrer Cuzick model (a risk assessment model) the patient's lifetime risk is 5.0% and her 10 year risk is 0.0%. According to the ACR, ACS, and NCCN guidelines, an annual breast MRI exam along with mammogram is recommended if the patient's lifetime risk is 20% or greater. This exam was interpreted at Station ID: [id number]. NOTE: For mammograms, a report in lay terms will be sent to the patient. Approximately 15% of breast malignancies will not be visualized mammographically. In the management of a palpable breast mass, a negative mammogram must not discourage biopsy of a clinically suspicious lesion. Electronically Signed By: Glory Vincent M.D., Ph.D. [email or web address]/[email or web address]:03/07/2024 08:54:40 letter sent: Normal Exam ACR BI-RADS Category 1: Negative [id number]
== END ==
LOC: MAMMO 08:00
PROVIDERS: PCP Internal Medicine; Referring Provider Internal Medicine; Visit Provider Internal Medicine
DX: Z12.31 Encounter for screening mammogram for malignant neoplasm of breast (principal); R92.343 Mammographic extreme density, bilateral breasts
CPT/HCPCS: 77063; 77067

== ENCOUNTER → 2024-08-24 10:31 | Outpatient (CLI) | payer MEDICARE, OTHER, SELFPAY | PROVIDERS: PCP Internal Medicine; Visit Provider Physician Assistant Surgical | DX: R05.9 Cough, unspecified (principal) | CPT/HCPCS: 87070 ==

== ENCOUNTER → 2024-09-01 07:09 | Outpatient (CLI) | payer MEDICARE, OTHER, SELFPAY | PROVIDERS: PCP Internal Medicine; Visit Provider Nurse Practitioner Family | DX: R30.0 Dysuria (principal) | CPT/HCPCS: 87077; 87086 ==

== ENCOUNTER → 2024-10-23 12:28 | Outpatient (CLI) | payer MEDICARE, OTHER, SELFPAY ==
--- NOTE | 2024-10-23 12:30 | DI.RAD.S_ITS ---
PROCEDURE: XR KNEE RT 3V INDICATIONS: pain/swelling lateral knee TECHNIQUE: 3 views of the knee were acquired. COMPARISON: None. FINDINGS: Bones: No fractures or dislocations. No suspicious bony lesions. Tricompartmental arthritic change. Soft tissues: Mild joint effusion. No suspicious soft tissue calcifications. IMPRESSION: No visualized acute fracture or dislocation. However, if clinical concern and/or pain persist, short interval imaging followup in 7-10 days is recommended, as occult injury cannot be definitively excluded. Dictated by: Lesly Quigley M.D. on 10/23/2024 at 13:31 Approved by: Lesly Quigley M.D. on 10/23/2024 at 13:32
== END ==
PROVIDERS: PCP Internal Medicine; Referring Provider Physician Assistant; Visit Provider Physician Assistant
DX: M25.561 Pain in right knee (principal); M25.461 Effusion, right knee
CPT/HCPCS: 73562

== ENCOUNTER → 2024-12-02 14:55 | Outpatient (CLI) | payer MEDICARE, OTHER, SELFPAY ==
[2024-12-02 15:27] LABS: Hematocrit 38.5 % (36-46); Hemoglobin 13.2 g/dL (12.0-16.0); Mean Corpuscular HGB Conc 34.2 % (30-36); Mean Corpuscular Hemoglobin 31.4 PG (26-34); Mean Corpuscular Volume 91.9 fL (80-100); Platelet Count 191 X10^3/uL (150-400); Red Blood Cell Count 4.19 X10^6/uL (4.0-5.2); Red Cell Distribution Width 13.8 % (11.6-14.8); White Blood Cell Count 6.1 X10^3/uL (4.5-11.0)
[2024-12-02 16:00] LABS: HEMOLYSIS < 15 (0-50); Iron 78 ug/dL (37-170)
[2024-12-02 16:01] LABS: BUN Creatinine Ratio 27.1 (6-22); Blood Urea Nitrogen 16 mg/dL (7-17); Calcium 9.6 mg/dL (8.4-10.2); Carbon Dioxide 30 mmol/L (22-32); Chloride 98 mmol/L (98-107); Estimated Glomerular Filt Rate > 60 mL/min (>60); Glucose 107 mg/dL (70-99); HEMOLYSIS < 15 (0-50); Sodium 135 mmol/L (137-145)
[2024-12-02 16:10] LABS: Transferrin 232 mg/dL (206-381)
[2024-12-02 16:11] LABS: Percent Iron Saturation 27 % (15-50); Total Iron Binding Capacity 284 ug/dL (265-497)
[2024-12-02 16:37] LABS: Ferritin 49 ng/mL (11-264)
== END ==
PROVIDERS: Family Provider Internal Medicine; PCP Internal Medicine; Referring Provider Internal Medicine; Visit Provider Internal Medicine
DX: K92.1 Melena (principal); R42 Dizziness and giddiness
CPT/HCPCS: 36415; 80048; 82728; 83540; 83550; 85027

== ENCOUNTER → 2025-01-12 08:58 | Outpatient (CLI) | payer MEDICARE, OTHER, SELFPAY ==
--- NOTE | 2025-01-12 09:01 | DI.RAD.S_ITS ---
PROCEDURE: XR FOOT RT MIN 3V INDICATIONS: pain, hit on bed. pain 3 4 toes TECHNIQUE: 3 views of the foot were acquired. COMPARISON: [facility], CR, XR FOOT LT MIN 3V, 11/23/2023, 14:36. FINDINGS AND IMPRESSION: No dislocation. No displaced fracture lucencies identified. Possible nondisplaced lucency at the 4th distal phalanx tip, correlate with any tenderness. Plantar calcaneal enthesopathy. No suspicious soft tissue calcifications. Dictated by: Donaldo Jasso M.D. on 01/12/2025 at 12:01 Approved by: Donaldo Jasso M.D. on 01/12/2025 at 12:04
== END ==
PROVIDERS: Family Provider Internal Medicine; PCP Internal Medicine; Referring Provider Family Medicine; Visit Provider Family Medicine
DX: S90.31XA Contusion of right foot, initial encounter (principal); W22.09XA Striking against other stationary object, initial encounter
CPT/HCPCS: 73630

== ENCOUNTER 2025-01-19 17:00 | Outpatient (RCR) | payer MEDICARE, OTHER, SELFPAY ==
--- NOTE | 2024-11-27 12:40 | PT.OIE ---
Addendum entered and electronically signed by Jody Jauregui, PT 11/27/24 18:15: PT direct supervision and direction to student PT Lesley Shen throughout session Original Note: Current Diagnoses Strain of unspecified muscle(s) and tendon(s) at lower leg level, right leg, subsequent encounter (11/27/24) Past Medical History (Last Updated 07/01/24 @ 12:04 by Serena Limon MD) Allergic rhinitis Chronic low back pain Family history of colon cancer Fracture of fourth metatarsal bone of left foot Glaucoma History of colonic polyps Lichen sclerosus Menopausal syndrome Mixed hyperlipidemia Osteopenia Right rotator cuff tendonitis Well woman exam with routine gynecological exam Visit Care Team Role Provider Type Carl Farias MD Family Provider Physician Primary Care Provider Specialty: Internal Medicine Address: [address] [place] [address] Email: [email or web address] Radha Rios PA-C Attending Provider Advanced Inventory Analyst Referring Provider Specialty: Medical Wound Care Address: [address] [place] [address], [facility] Email: [email or web address] Physical Therapy Initial Evaluation PT-OP-A Visit Information Start: 11/27/24 08:18 Freq: Status: Active Protocol: Document 11/27/24 08:18 GG (Rec: 11/27/24 10:10 GG Laptop) Out-Patient Physical Therapy Visit Information Visit Information Visit Type Initial Evaluation Visit Start Time 08:17 Visit Stop Time 09:07 Visit Number 1 Number of GENERAL PRODUCTION WORKER Visits 0 PT-OP-B Current Condition Start: 11/27/24 08:18 Freq: Status: Active Protocol: Document 11/27/24 08:18 GG (Rec: 11/27/24 09:08 GG Laptop) Current Condition History of Current Condition Onset Date 1 month ago Current Complaints R knee pain History of Current Pt reports that she was at the [employer] [employer] [place] [employer] doing a silver sneakers class and her knee was painful and swollen the following morning. Couldn't walk the next day, but had crutches available to use. Went to urgent care and got x-rays, no fractures. Was prescribed a stronger NSAID (aleve) and pain lasted for another 2 days and went back to normal. Notes pain when sweeping the leg behind the other and bringing it back to neutral, and can sometimes click too. Difficulty w/ balance and has been practicing SLS at home. Has a trip planned to [place] in January. Notes she has not been walking as much as she used to d/t balance difficulties, but was thinking about get trekking poles. Has an exercise program that she does 6x/wk and workout classes. Hx of 4th metatarsal fx a couple years ago. No hx of back pain. Treatment Goals Patient/Caregiver LE strength, balance Goals PT-OP-C Subjective Start: 11/27/24 08:18 Freq: Status: Active Protocol: Document 11/27/24 08:18 GG (Rec: 11/27/24 10:14 GG Laptop) Patient Questionnaires Lower Extremity Functional Scale LEFS Score 61/80 OP-PT Pain Assessment Location R knee Scale Used -10/02 PT-OP-D Balance Start: 11/27/24 08:18 Freq: Status: Active Protocol: Document 11/27/24 08:18 GG (Rec: 11/27/24 09:08 GG Laptop) Balance Tests Single Limb Standing Single Limb- Right 8 sec Single Limb- Left 5 sec PT-OP-L Special Tests Start: 11/27/24 08:18 Freq: Status: Active Protocol: Document 11/27/24 08:18 GG (Rec: 11/27/24 09:08 GG Laptop) Special Tests Hip Special Tests Obers Test Results neg Knee Special Tests thessaly Test Results neg reinaldo's compression Test Results pos on R PT-OP-M Strength Start: 11/27/24 08:18 Freq: Status: Active Protocol: Document 11/27/24 08:18 GG (Rec: 11/27/24 09:08 GG Laptop) Hip Strength Hip Manual Muscle Testing Right Flexion (L2) 4 Good Extension (S1) 4 Good Abduction 3+ Fair+ Adduction 4+ Good+ External Rotation 4 Good Internal Rotation 4+ Good+ Comments pt notes mild pain w/ flexion, ER, and IR Left Flexion (L2) 4 Good Extension (S1) 4 Good Abduction 4 Good Adduction 4+ Good+ External Rotation 4 Good Internal Rotation 4+ Good+ Knee Strength Knee Manual Muscle Testing Right Flexion (S2) 4+ Good+ Extension (L3) 4+ Good+ Left Flexion (S2) 4 Good Extension (L3) 4+ Good+ Ankle/Foot Strength Ankle and Foot Manual Muscle Testing Right Dorsiflexion (L4) 4+ Good+ Plantarflexion (S1) 5 Normal Left Dorsiflexion (L4) 4 Good Plantarflexion (S1) 5 Normal PT-OP-Q Treatments Start: 11/27/24 08:18 Freq: Status: Active Protocol: Document 11/27/24 08:18 GG (Rec: 11/27/24 09:08 GG Laptop) Therapeutic Exercises Standing Exercises heel raises Side bilateral Reps/Minutes 20x Comments wall for balance; pt ed to stop on L side if painful hip ABD Side bilateral Resistance L2 Reps/Minutes 10x Comments cue for set-up and not leaning forward squats Standing Exercise squat taps Name Side bilateral PT-OP-T Assessment and Plan Start: 11/27/24 08:18 Freq: Status: Active Protocol: Document 11/27/24 08:18 GG (Rec: 11/27/24 09:08 GG Laptop) Physical Therapy Assessment Rehab Potential Rehabilitation Good Potential Evaluation Complexity Number of Personal 3 or More Factors/ Comorbidities Number of Body 3 Systems Impaired Clinical Evolving Presentation at Evaluation Impairments Impairments Activity Tolerance,Balance,Coordination,Functional Activities,Functional Mobility,Gait,Pain,Strength Goals pain Card Punching Machine Operator Goal (LTG) Pt will be able to perform exercises w/o R knee pain for better performance of functional goals. LTG Duration 01/22/25 strength Short Term Goal (STG Pt will be independent in HEP. ) STG Duration 12/26/24 Intermediate Goal (LTG) Pt will score at least a 4+/5 on BLE MMTs to show improved strength for better ability to fulfill activities. LTG Duration 01/22/25 balance Short Term Goal (STG Pt will be able to get at least 10 sec hold B for SLS ) to meet age-related norms. STG Duration 12/26/24 Card Punching Machine Operator Goal (LTG) Pt will be able to get at least 15 sec hold B for SLS for better performance of functional activities. 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 Pt also presents with deficits in LE strength and balance that impact her ability and confidence to perform functional activities. Pt will benefit from PT to establish a POC that targets increasing LE strength and static/dynamic balance to better support her knee and improve pain during activity. Physical Therapy Plan Frequency and Duration Frequency of 1-2x/wk Treatment Duration of 8 treatment (weeks) Plan of Care Start 11/27/24 Date Plan of Care End 01/22/25 Date Therapeutic Interventions Therapeutic Balance Training,Coordination Training,Gait Training, Interventions Home Exercise Program,Joint Mobilizations,Manual Therapy,Neuromuscular Re-education,Patient/Caregiver Education,Self-Care/Home Management,Soft Tissue Mobilization,Therapeutic Activities,Therapeutic Exercises Modalities Cold Pack/Ice Massage,Electric Stimulation,Hot Packs, Infrared Therapy,Traction- Mechanical,Ultrasound Next Visit Focus/Plan Next Note Type Treatment Note Next Visit Plan manual for ITB/TFL, assess patellar tracking; progress exercises in program pt already does or add new exercises for LE strength, try some SL strengthening and balance, shuttle balance or foam, assess DGI/FGA
--- NOTE | 2024-11-27 12:41 | PT.OPPOC ---
Physical, Occupational & Speech Therapy At [facility] Current Diagnoses Strain of unspecified muscle(s) and tendon(s) at lower leg level, right leg, subsequent encounter (11/27/24) Visit Care Team Role Provider Type Carl Farias MD Family Provider Physician Primary Care Provider Specialty: Internal Medicine Address: [address] [place] [address], [id number] Email: [email or web address] Radha Rios PA-C Attending Provider Advanced Chain Maker Loom Control Referring Provider Specialty: Medical Wound Care Address: [address] [place] [address], [id number] Email: [email or web address] Plan Of Care PT-OP-B Current Condition Start: 11/27/24 08:18 Freq: Status: Active Protocol: Document 11/27/24 08:18 GG (Rec: 11/27/24 09:08 GG Laptop) Current Condition History of Current Condition Onset Date 1 month ago Current Complaints R knee pain History of Current Pt reports that she was at the [facility] [employer] doing a silver sneaGigya class and her knee was painful and swollen the following morning. Couldn't walk the next day, but had crutches available to use. Went to urgent care and got x-rays, no fractures. Was prescribed a stronger NSAID (aleve) and pain lasted for another 2 days and went back to normal. Notes pain when sweeping the leg behind the other and bringing it back to neutral, and can sometimes click too. Difficulty w/ balance and has been practicing SLS at home. Has a trip planned to [place] in January. Notes she has not been walking as much as she used to d/t balance difficulties, but was thinking about get trekking poles. Has an exercise program that she does 6x/wk and workout classes. Hx of 4th metatarsal fx a couple years ago. No hx of back pain. Treatment Goals Patient/Caregiver LE strength, balance Goals PT-OP-T Assessment and Plan Start: 11/27/24 08:18 Freq: Status: Active Protocol: Document 11/27/24 08:18 GG (Rec: 11/27/24 09:08 GG Laptop) Physical Therapy Assessment Rehab Potential Rehabilitation Good Potential Evaluation Complexity Number of Personal 3 or More Factors/ Comorbidities Number of Body 3 Systems Impaired Clinical Evolving Presentation at Evaluation Impairments Impairments Activity Tolerance,Balance,Coordination,Functional Activities,Functional Mobility,Gait,Pain,Strength Goals pain Family And Consumer Sciences Professor Goal (LTG) Pt will be able to perform exercises w/o R knee pain for better performance of functional goals. LTG Duration 01/22/25 strength Short Term Goal (STG Pt will be independent in HEP. ) STG Duration 12/26/24 Care Home Goal (LTG) Pt will score at least a 4+/5 on BLE MMTs to show improved strength for better ability to fulfill activities. LTG Duration 01/22/25 balance Short Term Goal (STG Pt will be able to get at least 10 sec hold B for SLS ) to meet age-related norms. STG Duration 12/26/24 Family And Consumer Sciences Professor Goal (LTG) Pt will be able to get at least 15 sec hold B for SLS for better performance of functional activities. 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 Pt also presents with deficits in LE strength and balance that impact her ability and confidence to perform functional activities. Pt will benefit from PT to establish a POC that targets increasing LE strength and static/dynamic balance to better support her knee and improve pain during activity. Physical Therapy Plan Frequency and Duration Frequency of 1-2x/wk Treatment Duration of 8 treatment (weeks) Plan of Care Start 11/27/24 Date Plan of Care End 01/22/25 Date Therapeutic Interventions Therapeutic Balance Training,Coordination Training,Gait Training, Interventions Home Exercise Program,Joint Mobilizations,Manual Therapy,Neuromuscular Re-education,Patient/Caregiver Education,Self-Care/Home Management,Soft Tissue Mobilization,Therapeutic Activities,Therapeutic Exercises Modalities Cold Pack/Ice Massage,Electric Stimulation,Hot Packs, Infrared Therapy,Traction- Mechanical,Ultrasound Next Visit Focus/Plan Next Note Type Treatment Note Next Visit Plan manual for ITB/TFL, assess patellar tracking; progress exercises in program pt already does or add new exercises for LE strength, try some SL strengthening and balance, shuttle balance or foam, assess DGI/FGA Plan of Care Dates Plan of Care Start Date 11/27/24 Plan of Care End Date 01/22/25 Electronically Signed by: Lesley Shen 11/27/24 1241 If you are in agreement with this Plan of Care, please return a signed and dated copy. I have reviewed this Plan of Care and certify that the skilled therapy services above are required to meet the patient?s needs. Physician Signature Date Printed Name and Credentials Clinical Instructor Signature Printed Name and Credentials
--- NOTE | 2024-12-02 14:22 | PT.OTN ---
Addendum entered and electronically signed by Jody Jauregui, PT 12/02/24 14:43: PT direct supervision and direction to student PT Lesley Shen throughout session Original Note: Current Diagnoses Strain of unspecified muscle(s) and tendon(s) at lower leg level, right leg, subsequent encounter (12/02/24) Physical Therapy Treatment Note PT-OP-A Visit Information Start: 11/27/24 08:18 Freq: Status: Active Protocol: Document 12/02/24 09:04 GG (Rec: 12/02/24 10:13 GG [id number]) Out-Patient Physical Therapy Visit Information Visit Information Visit Type Treatment Note Visit Start Time 09:04 Visit Stop Time 09:50 Visit Number 2 Number of PARTS WASHER Visits 0 PT-OP-B Current Condition Start: 11/27/24 08:18 Freq: Status: Active Protocol: Document 11/27/24 08:18 GG (Rec: 11/27/24 09:08 GG Laptop) Current Condition History of Current Condition Onset Date 1 month ago Current Complaints R knee pain History of Current Pt reports that she was at the [employer] doing a [employer] class and her knee was painful and swollen the following morning. Couldn't walk the next day, but had crutches available to use. Went to urgent care and got x-rays, no fractures. Was prescribed a stronger NSAID (aleve) and pain lasted for another 2 days and went back to normal. Notes pain when sweeping the leg behind the other and bringing it back to neutral, and can sometimes click too. Difficulty w/ balance and has been practicing SLS at home. Has a trip planned to [place] in January. Notes she has not been walking as much as she used to d/t balance difficulties, but was thinking about get trekking poles. Has an exercise program that she does 6x/wk and workout classes. Hx of 4th metatarsal fx a couple years ago. No hx of back pain. Treatment Goals Patient/Caregiver LE strength, balance Goals PT-OP-C Subjective Start: 11/27/24 08:18 Freq: Status: Active Protocol: Document 12/02/24 09:04 GG (Rec: 12/02/24 10:13 GG [id number]) OP-PT Subjective Patient Comments Patient Comments Pt reports that she has been doing her HEP and she likes the exercises. PT-OP-D Balance Start: 11/27/24 08:18 Freq: Status: Active Protocol: Document 11/27/24 08:18 GG (Rec: 11/27/24 09:08 GG Laptop) Balance Tests Single Limb Standing Single Limb- Right 8 sec Single Limb- Left 5 sec PT-OP-E Functional Tests Start: 11/27/24 08:18 Freq: Status: Active Protocol: Document 12/02/24 09:04 GG (Rec: 12/02/24 10:14 GG [id number]) Functional Tests Functional Gait Assessment Score 21/30 PT-OP-L Special Tests Start: 11/27/24 08:18 Freq: Status: Active Protocol: Document 11/27/24 08:18 GG (Rec: 11/27/24 09:08 GG Laptop) Special Tests Hip Special Tests Obers Test Results neg Knee Special Tests thessaly Test Results neg delma's compression Test Results pos on R PT-OP-M Strength Start: 11/27/24 08:18 Freq: Status: Active Protocol: Document 11/27/24 08:18 GG (Rec: 11/27/24 09:08 GG Laptop) Hip Strength Hip Manual Muscle Testing Right Flexion (L2) 4 Good Extension (S1) 4 Good Abduction 3+ Fair+ Adduction 4+ Good+ External Rotation 4 Good Internal Rotation 4+ Good+ Comments pt notes mild pain w/ flexion, ER, and IR Left Flexion (L2) 4 Good Extension (S1) 4 Good Abduction 4 Good Adduction 4+ Good+ External Rotation 4 Good Internal Rotation 4+ Good+ Knee Strength Knee Manual Muscle Testing Right Flexion (S2) 4+ Good+ Extension (L3) 4+ Good+ Left Flexion (S2) 4 Good Extension (L3) 4+ Good+ Ankle/Foot Strength Ankle and Foot Manual Muscle Testing Right Dorsiflexion (L4) 4+ Good+ Plantarflexion (S1) 5 Normal Left Dorsiflexion (L4) 4 Good Plantarflexion (S1) 5 Normal PT-OP-Q Treatments Start: 11/27/24 08:18 Freq: Status: Active Protocol: Document 12/02/24 09:04 GG (Rec: 12/02/24 10:13 GG [id number]) Therapeutic Exercises Supine Exercises stretches Supine Exercise Name TFL w/ strap Side right Reps/Minutes 30 sec Standing Exercises hip extension Resistance L2 band Reps/Minutes 10x B Manual Therapy Treatment Consent Patient gave verbal Yes consent for manual treatment Soft Tissue Mobilization ITB Body Location R distal ITB Comments cupping w/ active heel slide Neuro Re-Education Treatment Balance Activities testing Details FGA foam Details tandem Reps/Duration 1 min Coordination Activities hurdles Details 6 hurdles at rail Comments stepping reciprocally 1. 2 laps CGA 2. 4 laps CGA w/ cues to hold SLS before stepping over leatha 3. 2 laps SBA PT-OP-T Assessment and Plan Start: 11/27/24 08:18 Freq: Status: Active Protocol: Document 12/02/24 09:04 GG (Rec: 12/02/24 10:13 GG [id number]) Physical Therapy Assessment Goals pain Senior Commissary Agent Goal (LTG) Pt will be able to perform exercises w/o R knee pain for better performance of functional goals. LTG Duration 01/22/25 strength Short Term Goal (STG Pt will be independent in HEP. ) STG Duration 12/26/24 Senior Commissary Agent Goal (LTG) Pt will score at least a 4+/5 on BLE MMTs to show improved strength for better ability to fulfill activities. LTG Duration 01/22/25 balance Short Term Goal (STG Pt will be able to get at least 10 sec hold B for SLS ) to meet age-related norms. STG Duration 12/26/24 Senior Commissary Agent Goal (LTG) Pt will be able to get at least 15 sec hold B for SLS for better performance of functional activities. LTG Duration 01/22/25 Assessment Summary Assessment Pt demonstrates good tolerance to exercises today, especially w/ the addition of balance exercises. Additional balance testing showed some deficits in dynamic balance that the patient can improve with PT. Physical Therapy Plan Frequency and Duration Frequency of 1-2x/wk Treatment Duration of 8 treatment (weeks) Plan of Care Start 11/27/24 Date Plan of Care End 01/22/25 Date Therapeutic Interventions Therapeutic Balance Training,Coordination Training,Gait Training, Interventions Home Exercise Program,Joint Mobilizations,Manual Therapy,Neuromuscular Re-education,Patient/Caregiver Education,Self-Care/Home Management,Soft Tissue Mobilization,Therapeutic Activities,Therapeutic Exercises Modalities Cold Pack/Ice Massage,Electric Stimulation,Hot Packs, Infrared Therapy,Traction- Mechanical,Ultrasound Next Visit Focus/Plan Next Note Type Treatment Note Next Visit Plan manual for ITB/TFL, assess patellar tracking; progress exercises in program pt already does or add new exercises for LE strength, try some SL strengthening, static/dynamic balance, foam, assess HEP: TFL stretch
--- NOTE | 2024-12-04 09:03 | PT-OP ANOTE ---
Pt called when not at appt at 735 and she notes she called at 720 to cancel d/t her water running in house and she can't get it to turn off even at the street turn off. Very apologetic and notes she is sad that she is unable to make it today.
--- NOTE | 2024-12-11 09:02 | PT.OTN ---
Current Diagnoses Strain of unspecified muscle(s) and tendon(s) at lower leg level, right leg, subsequent encounter (12/11/24) Physical Therapy Treatment Note PT-OP-A Visit Information Start: 11/27/24 08:18 Freq: Status: Active Protocol: Document 12/11/24 08:19 SP (Rec: 12/11/24 09:03 SP [id number]) Out-Patient Physical Therapy Visit Information Visit Information Visit Type Treatment Note Visit Start Time 08:19 Visit Stop Time 09:02 Visit Number 3 Number of MARITIME PILOT Visits 1 PT-OP-B Current Condition Start: 11/27/24 08:18 Freq: Status: Active Protocol: Document 11/27/24 08:18 GG (Rec: 11/27/24 09:08 GG Laptop) Current Condition History of Current Condition Onset Date 1 month ago Current Complaints R knee pain History of Current Pt reports that she was at the [facility] [employer] [place] [facility] doing a silver [employer] class and her knee was painful and swollen the following morning. Couldn't walk the next day, but had crutches available to use. Went to urgent care and got x-rays, no fractures. Was prescribed a stronger NSAID (aleve) and pain lasted for another 2 days and went back to normal. Notes pain when sweeping the leg behind the other and bringing it back to neutral, and can sometimes click too. Difficulty w/ balance and has been practicing SLS at home. Has a trip planned to [place] in January. Notes she has not been walking as much as she used to d/t balance difficulties, but was thinking about get trekking poles. Has an exercise program that she does 6x/wk and workout classes. Hx of 4th metatarsal fx a couple years ago. No hx of back pain. Treatment Goals Patient/Caregiver LE strength, balance Goals PT-OP-C Subjective Start: 11/27/24 08:18 Freq: Status: Active Protocol: Document 12/11/24 08:19 SP (Rec: 12/11/24 09:03 SP [id number]) OP-PT Subjective Patient Comments Patient Comments Pt PT-OP-D Balance Start: 11/27/24 08:18 Freq: Status: Active Protocol: Document 11/27/24 08:18 GG (Rec: 11/27/24 09:08 GG Laptop) Balance Tests Single Limb Standing Single Limb- Right 8 sec Single Limb- Left 5 sec PT-OP-E Functional Tests Start: 11/27/24 08:18 Freq: Status: Active Protocol: Document 12/02/24 09:04 GG (Rec: 12/02/24 10:14 GG [id number]) Functional Tests Functional Gait Assessment Score 21/30 PT-OP-L Special Tests Start: 11/27/24 08:18 Freq: Status: Active Protocol: Document 11/27/24 08:18 GG (Rec: 11/27/24 09:08 GG Laptop) Special Tests Hip Special Tests Obers Test Results neg Knee Special Tests thessaly Test Results neg delma's compression Test Results pos on R PT-OP-M Strength Start: 11/27/24 08:18 Freq: Status: Active Protocol: Document 11/27/24 08:18 GG (Rec: 11/27/24 09:08 GG Laptop) Hip Strength Hip Manual Muscle Testing Right Flexion (L2) 4 Good Extension (S1) 4 Good Abduction 3+ Fair+ Adduction 4+ Good+ External Rotation 4 Good Internal Rotation 4+ Good+ Comments pt notes mild pain w/ flexion, ER, and IR Left Flexion (L2) 4 Good Extension (S1) 4 Good Abduction 4 Good Adduction 4+ Good+ External Rotation 4 Good Internal Rotation 4+ Good+ Knee Strength Knee Manual Muscle Testing Right Flexion (S2) 4+ Good+ Extension (L3) 4+ Good+ Left Flexion (S2) 4 Good Extension (L3) 4+ Good+ Ankle/Foot Strength Ankle and Foot Manual Muscle Testing Right Dorsiflexion (L4) 4+ Good+ Plantarflexion (S1) 5 Normal Left Dorsiflexion (L4) 4 Good Plantarflexion (S1) 5 Normal PT-OP-Q Treatments Start: 11/27/24 08:18 Freq: Status: Active Protocol: Document 12/11/24 08:19 SP (Rec: 12/11/24 09:03 SP [id number]) Therapeutic Exercises Supine Exercises Bridge with TB Supine Exercise Name reviewed a past HEP with TB Resistance Tb #3 around upper shins Reps/Minutes x10 reps Comments cued slow pacing lift/lower, maintain knees apart stretches Supine Exercise Name Reviewed HEP past/present: 1. TFL w/ strap 2. LTR 3. KFO adductor stretch Side bilateral Reps/Minutes 30 sec each Comments cued neutral pelvis Sitting Exercises Clamshell with TB Sitting Exercise Reviewed a past HEP with added TB (wrote on her HO) Name Side bilateral Resistance TB #3 [place] Reps/Minutes 2-3x10 Comments cued slow pacing lift, pause then slow down Standing Exercises hip extension Resistance L2 band Reps/Minutes 10x B heel raises Side bilateral Reps/Minutes 20x Comments wall for balance; pt ed to stop on L side if painful hip ABD Standing Exercise Abduction and Extension Name Side bilateral Resistance L2 [place] Reps/Minutes 10x2 Comments cue for set-up and not leaning forward squats Standing Exercise squat taps Name Side bilateral Resistance TB #3 around knees Equipment Used arms across chest Reps/Minutes 10 reps Comments cued TA with hip hinge, touch and return to stand PT-OP-T Assessment and Plan Start: 11/27/24 08:18 Freq: Status: Active Protocol: Document 12/11/24 08:19 SP (Rec: 12/11/24 09:03 SP [id number]) Physical Therapy Assessment Goals pain Business Process Consultant Goal (LTG) Pt will be able to perform exercises w/o R knee pain for better performance of functional goals. LTG Duration 01/22/25 strength Short Term Goal (STG Pt will be independent in HEP. ) STG Duration 12/26/24 Half-Way Goal (LTG) Pt will score at least a 4+/5 on BLE MMTs to show improved strength for better ability to fulfill activities. LTG Duration 01/22/25 balance Short Term Goal (STG Pt will be able to get at least 10 sec hold B for SLS ) to meet age-related norms. STG Duration 12/26/24 Half-Way Goal (LTG) Pt will be able to get at least 15 sec hold B for SLS for better performance of functional activities. LTG Duration 01/22/25 Assessment Summary Assessment Pt responded well to added resistance to past HEP bridge, sidelying clamshell on her HOs. Cues for proper set up and form. Good feedback response to SL heel raises. Ed ucation on ankle ROM and toe ABD for increased mobililty before walking in am for decreased ankle discomfort. Physical Therapy Plan Frequency and Duration Frequency of 1-2x/wk Treatment Duration of 8 treatment (weeks) Plan of Care Start 11/27/24 Date Plan of Care End 01/22/25 Date Therapeutic Interventions Therapeutic Balance Training,Coordination Training,Gait Training, Interventions Home Exercise Program,Joint Mobilizations,Manual Therapy,Neuromuscular Re-education,Patient/Caregiver Education,Self-Care/Home Management,Soft Tissue Mobilization,Therapeutic Activities,Therapeutic Exercises Modalities Cold Pack/Ice Massage,Electric Stimulation,Hot Packs, Infrared Therapy,Traction- Mechanical,Ultrasound Next Visit Focus/Plan Next Note Type Treatment Note Next Visit Plan manual for ITB/TFL, assess patellar tracking; progress exercises in program pt already does or add new exercises for LE strength, try some SL strengthening, static/dynamic balance, foam, assess HEP: TFL stretch
--- NOTE | 2024-12-17 11:35 | PT.OTN ---
Current Diagnoses Strain of unspecified muscle(s) and tendon(s) at lower leg level, right leg, subsequent encounter (12/17/24) Physical Therapy Treatment Note PT-OP-A Visit Information Start: 11/27/24 08:18 Freq: Status: Active Protocol: Document 12/17/24 10:43 SP (Rec: 12/17/24 12:40 SP [id number]) Out-Patient Physical Therapy Visit Information Visit Information Visit Type Treatment Note Visit Start Time 10:45 Visit Stop Time 11:35 Visit Number 4 Number of TERMINAL CARMAN Visits 2 PT-OP-B Current Condition Start: 11/27/24 08:18 Freq: Status: Active Protocol: Document 11/27/24 08:18 GG (Rec: 11/27/24 09:08 GG Laptop) Current Condition History of Current Condition Onset Date 1 month ago Current Complaints R knee pain History of Current Pt reports that she was at the [facility] doing a [employer] class and her knee was painful and swollen the following morning. Couldn't walk the next day, but had crutches available to use. Went to urgent care and got x-rays, no fractures. Was prescribed a stronger NSAID (aleve) and pain lasted for another 2 days and went back to normal. Notes pain when sweeping the leg behind the other and bringing it back to neutral, and can sometimes click too. Difficulty w/ balance and has been practicing SLS at home. Has a trip planned to [place] in January. Notes she has not been walking as much as she used to d/t balance difficulties, but was thinking about get trekking poles. Has an exercise program that she does 6x/wk and workout classes. Hx of 4th metatarsal fx a couple years ago. No hx of back pain. Treatment Goals Patient/Caregiver LE strength, balance Goals PT-OP-C Subjective Start: 11/27/24 08:18 Freq: Status: Active Protocol: Document 12/17/24 10:43 SP (Rec: 12/17/24 12:40 SP [id number]) OP-PT Subjective Patient Comments Patient Comments Pt reports already did exercises in pool today. Also attends silver sneakers with chairs, bands, balls. She stated ITB stretch has been very helpful. PT-OP-D Balance Start: 11/27/24 08:18 Freq: Status: Active Protocol: Document 11/27/24 08:18 GG (Rec: 11/27/24 09:08 GG Laptop) Balance Tests Single Limb Standing Single Limb- Right 8 sec Single Limb- Left 5 sec PT-OP-E Functional Tests Start: 11/27/24 08:18 Freq: Status: Active Protocol: Document 12/02/24 09:04 GG (Rec: 12/02/24 10:14 GG [id number]) Functional Tests Functional Gait Assessment Score 21/30 PT-OP-L Special Tests Start: 11/27/24 08:18 Freq: Status: Active Protocol: Document 11/27/24 08:18 GG (Rec: 11/27/24 09:08 GG Laptop) Special Tests Hip Special Tests Obers Test Results neg Knee Special Tests thessaly Test Results neg delma's compression Test Results pos on R PT-OP-M Strength Start: 11/27/24 08:18 Freq: Status: Active Protocol: Document 11/27/24 08:18 GG (Rec: 11/27/24 09:08 GG Laptop) Hip Strength Hip Manual Muscle Testing Right Flexion (L2) 4 Good Extension (S1) 4 Good Abduction 3+ Fair+ Adduction 4+ Good+ External Rotation 4 Good Internal Rotation 4+ Good+ Comments pt notes mild pain w/ flexion, ER, and IR Left Flexion (L2) 4 Good Extension (S1) 4 Good Abduction 4 Good Adduction 4+ Good+ External Rotation 4 Good Internal Rotation 4+ Good+ Knee Strength Knee Manual Muscle Testing Right Flexion (S2) 4+ Good+ Extension (L3) 4+ Good+ Left Flexion (S2) 4 Good Extension (L3) 4+ Good+ Ankle/Foot Strength Ankle and Foot Manual Muscle Testing Right Dorsiflexion (L4) 4+ Good+ Plantarflexion (S1) 5 Normal Left Dorsiflexion (L4) 4 Good Plantarflexion (S1) 5 Normal PT-OP-Q Treatments Start: 11/27/24 08:18 Freq: Status: Active Protocol: Document 12/17/24 10:43 SP (Rec: 12/17/24 12:40 SP [id number]) Gym Equipment Shuttle Recovery Unilateral Squat Details cued knee alignment with forefoot, glut drive Resistance 37>50# (2 teal bands) Reps/Time 10 reps Therapeutic Exercises Supine Exercises stretches Supine Exercise Name Reviewed HEP past/present: 1. TFL w/ strap Side bilateral Reps/Minutes 30-60 sec each Comments cued neutral pelvis Prone Exercises quad stretch Prone Exercise Name added to HEP with HO Side bilateral Equipment Used with strap on foot Reps/Minutes 60sec Comments cued for set up self perform- good feedback knee tension reduction Standing Exercises Stationary Lunge Standing Exercise Review a class exercise found challenging- improved Name with cues/rep perform. Side bilateral Resistance (hip hinge like picking up item) Equipment Used near rail for contact needed Reps/Minutes multiple reps Comments knee behind/with toes, incr ALLAN&stride, hip hinge/ buttock back Therapeutic Activity Therapeutic Activity on/off floor Name for knee ROM and confidence no UE outside support in class Reps/Minutes many reps for ease form and benefits for Knee ROM Comments 1. Assisted standing squat<> quadruped 2. 1/2 kneel with cuing for UE support needed floor or knee, allowing knee increased ROM and stretch if find beneficial Neuro Re-Education Treatment Balance Activities Balance Beam Details fwd, lateral Reps/Duration multiple laps Comments 5%>CGA Cues for elongated posture with scapular complex engagement, TA draw in midline stability over ALLAN with rep progression. SLS Details future Coordination Activities hurdles Details 6 hurdles with foam stones Speed inside //bars, improve no UE support Comments stepping reciprocally stride stance then progressed tandem positioning *cues for elongated posture, scap and core engagement, slower pacing& soft stepping improved midline with no UE support. PT-OP-T Assessment and Plan Start: 11/27/24 08:18 Freq: Status: Active Protocol: Document 12/17/24 10:43 SP (Rec: 12/17/24 12:40 SP [id number]) Physical Therapy Assessment Goals pain Gas Plant Technician Goal (LTG) Pt will be able to perform exercises w/o R knee pain for better performance of functional goals. LTG Duration 01/22/25 strength Short Term Goal (STG Pt will be independent in HEP. ) STG Duration 12/26/24 Intermediate Goal (LTG) Pt will score at least a 4+/5 on BLE MMTs to show improved strength for better ability to fulfill activities. LTG Duration 01/22/25 balance Short Term Goal (STG Pt will be able to get at least 10 sec hold B for SLS ) to meet age-related norms. STG Duration 12/26/24 Intermediate Goal (LTG) Pt will be able to get at least 15 sec hold B for SLS for better performance of functional activities. LTG Duration 01/22/25 Assessment Summary Assessment Pt improved decreased knee tension with reviewed instruction on stretching ITB and prone quad today with good feedback easier to get on/off floor. Instruction provided for different strategies to get on/off floor and 1/2 kneel allows for opportunity for knee ROM into flexion if finds comfortable vs assisted squat<> quadruped positioning during classes attends. Physical Therapy Plan Frequency and Duration Frequency of 1-2x/wk Treatment Duration of 8 treatment (weeks) Plan of Care Start 11/27/24 Date Plan of Care End 01/22/25 Date Therapeutic Interventions Therapeutic Balance Training,Coordination Training,Gait Training, Interventions Home Exercise Program,Joint Mobilizations,Manual Therapy,Neuromuscular Re-education,Patient/Caregiver Education,Self-Care/Home Management,Soft Tissue Mobilization,Therapeutic Activities,Therapeutic Exercises Modalities Cold Pack/Ice Massage,Electric Stimulation,Hot Packs, Infrared Therapy,Traction- Mechanical,Ultrasound Next Visit Focus/Plan Next Note Type Treatment Note Next Visit Plan POC: manual for ITB/TFL, assess patellar tracking during activities; progress exercises in program pt already does in classes or add new exercises for LE strength, next incorporate SL strengthening, static/ dynamic balance, foam, assess HEP: TFL, ITB, quad stretch, lunges
--- NOTE | 2024-12-23 12:24 | PT.OTN ---
Current Diagnoses Strain of unspecified muscle(s) and tendon(s) at lower leg level, right leg, subsequent encounter (12/23/24) Physical Therapy Treatment Note PT-OP-A Visit Information Start: 11/27/24 08:18 Freq: Status: Active Protocol: Document 12/23/24 11:34 SP (Rec: 12/23/24 12:41 SP [id number]) Out-Patient Physical Therapy Visit Information Visit Information Visit Type Treatment Note Visit Start Time 11:34 Visit Stop Time 12:24 Visit Number 5 Number of WAGE ANALYST Visits 3 PT-OP-B Current Condition Start: 11/27/24 08:18 Freq: Status: Active Protocol: Document 11/27/24 08:18 GG (Rec: 11/27/24 09:08 GG Laptop) Current Condition History of Current Condition Onset Date 1 month ago Current Complaints R knee pain History of Current Pt reports that she was at the [facility] doing a [employer] class and her knee was painful and swollen the following morning. Couldn't walk the next day, but had crutches available to use. Went to urgent care and got x-rays, no fractures. Was prescribed a stronger NSAID (aleve) and pain lasted for another 2 days and went back to normal. Notes pain when sweeping the leg behind the other and bringing it back to neutral, and can sometimes click too. Difficulty w/ balance and has been practicing SLS at home. Has a trip planned to [place] in January. Notes she has not been walking as much as she used to d/t balance difficulties, but was thinking about get trekking poles. Has an exercise program that she does 6x/wk and workout classes. Hx of 4th metatarsal fx a couple years ago. No hx of back pain. Treatment Goals Patient/Caregiver LE strength, balance Goals PT-OP-C Subjective Start: 11/27/24 08:18 Freq: Status: Active Protocol: Document 12/23/24 11:34 SP (Rec: 12/23/24 12:41 SP [id number]) OP-PT Subjective Patient Comments Patient Comments Pt reported her R knee bothersome. She reports didn't do HEP yesterday other than stretches and decided not to climb ladder for activities doing home. She reports has swelling in lateral R knee at times, got a knee sleeve but fabric has sticky addition for resisted slipping but irritates her skin, wanting to know if RAJ bandage better, suggestions. She is doing ab draw in when walking for spinal support. She states thinks it will take a while to get back to normal. PT-OP-D Balance Start: 11/27/24 08:18 Freq: Status: Active Protocol: Document 11/27/24 08:18 GG (Rec: 11/27/24 09:08 GG Laptop) Balance Tests Single Limb Standing Single Limb- Right 8 sec Single Limb- Left 5 sec PT-OP-E Functional Tests Start: 11/27/24 08:18 Freq: Status: Active Protocol: Document 12/02/24 09:04 GG (Rec: 12/02/24 10:14 GG [id number]) Functional Tests Functional Gait Assessment Score PT-OP-L Special Tests Start: 11/27/24 08:18 Freq: Status: Active Protocol: Document 11/27/24 08:18 GG (Rec: 11/27/24 09:08 GG Laptop) Special Tests Hip Special Tests Obers Test Results neg Knee Special Tests thessaly Test Results neg delma's compression Test Results pos on R PT-OP-M Strength Start: 11/27/24 08:18 Freq: Status: Active Protocol: Document 11/27/24 08:18 GG (Rec: 11/27/24 09:08 GG Laptop) Hip Strength Hip Manual Muscle Testing Right Flexion (L2) 4 Good Extension (S1) 4 Good Abduction 3+ Fair+ Adduction 4+ Good+ External Rotation 4 Good Internal Rotation 4+ Good+ Comments pt notes mild pain w/ flexion, ER, and IR Left Flexion (L2) 4 Good Extension (S1) 4 Good Abduction 4 Good Adduction 4+ Good+ External Rotation 4 Good Internal Rotation 4+ Good+ Knee Strength Knee Manual Muscle Testing Right Flexion (S2) 4+ Good+ Extension (L3) 4+ Good+ Left Flexion (S2) 4 Good Extension (L3) 4+ Good+ Ankle/Foot Strength Ankle and Foot Manual Muscle Testing Right Dorsiflexion (L4) 4+ Good+ Plantarflexion (S1) 5 Normal Left Dorsiflexion (L4) 4 Good Plantarflexion (S1) 5 Normal PT-OP-Q Treatments Start: 11/27/24 08:18 Freq: Status: Active Protocol: Document 12/23/24 11:34 SP (Rec: 12/23/24 12:41 SP [id number]) Gym Equipment Shuttle Recovery Bilateral Squat Details requiest light resistance warm up Resistance 50# (2 navy bands) Reps/Time 30 reps unlocked range comfortable Unilateral Squat Details cued knee alignment with forefoot, glut drive Resistance 50# (2 navy bands) Reps/Time 15 reps Therapeutic Exercises Supine Exercises stretches Supine Exercise Name Reviewed HEP past/present: 1. TFL 2. ITB 2. HS Side bilateral Equipment Used w/ strap on foot Reps/Minutes 30-60 sec each Comments cued neutral pelvis, TKE for HS Prone Exercises quad stretch Prone Exercise Name REviewed Side bilateral Equipment Used with strap on foot Reps/Minutes 60sec Comments occ cues for set up, L upper quad tighter than R more general Sitting Exercises LAQ Sitting Exercise added to HEP with HO Name Side bilateral Resistance b #1 at ankle and under other arch Reps/Minutes 10 reps each LE Comments cued TKE, no pain Clamshell with TB Sitting Exercise discussed review Name Side bilateral Resistance TB #3 [place]-place at upper [place] vs thigh reduce risk for irritation Reps/Minutes 2-3x10 Comments cued slow pacing lift, pause then slow down Standing Exercises HS curls Standing Exercise added to HEP with HO Name Side bilateral Resistance R Equipment Used Tb #1 around ankle/under opp arch Reps/Minutes 5 reps x2 Comments cued slow light tension initially so no HS cramp heel raises Standing Exercise DL asc/SL eccentric Name Side bilateral Equipment Used UE support on table Reps/Minutes 20 reps Comments wall for balance Manual Therapy Treatment Consent Patient gave verbal Yes consent for manual treatment Taping ktaping Body Location R knee lateral/superior patella inferior fan, anteromedial superior fan Treatment Focus swelling reduction Type of Tape Ktape Skin Inspection normal intact Comments 25% tension for swelling reduction- instructed adverse affects itching/redness remove otherise 2hrs to 4 day salgado if beneficial and allowed go in shower. Self-Care/Home Management Treatment Education Patient Education Safety Other Education Some time spent discussion knee mechanics, knee sleeves vs RAJ bandage, and fan Ktaping today for support and can apply self if finds beneficial. PT-OP-T Assessment and Plan Start: 11/27/24 08:18 Freq: Status: Active Protocol: Document 12/23/24 11:34 SP (Rec: 12/23/24 12:41 SP [id number]) Physical Therapy Assessment Goals pain Reverberatory Furnace Operator Goal (LTG) Pt will be able to perform exercises w/o R knee pain for better performance of functional goals. LTG Duration 01/22/25 strength Short Term Goal (STG Pt will be independent in HEP. ) STG Duration 12/26/24 Reverberatory Furnace Operator Goal (LTG) Pt will score at least a 4+/5 on BLE MMTs to show improved strength for better ability to fulfill activities. LTG Duration 01/22/25 balance Short Term Goal (STG Pt will be able to get at least 10 sec hold B for SLS ) to meet age-related norms. STG Duration 12/26/24 Reverberatory Furnace Operator Goal (LTG) Pt will be able to get at least 15 sec hold B for SLS for better performance of functional activities. LTG Duration 01/22/25 Assessment Summary Assessment Pt good response to stretching review and added resisted quad and HS today for progression strengthening. Provided Ktape to anteromedial and lateral R knee for slight swelling reduction/recovery. Discussed can wear R knee sleeve for swelling mgt support vs RAJ bandage. Discussed bring in hers next tx for assessment fit, she mentioned it has sticky fabric irritating to skin and wondered if RAJ bandage would be better for trip in Jan. Physical Therapy Plan Frequency and Duration Frequency of 1-2x/wk Treatment Duration of 8 treatment (weeks) Plan of Care Start 11/27/24 Date Plan of Care End 01/22/25 Date Therapeutic Interventions Therapeutic Balance Training,Coordination Training,Gait Training, Interventions Home Exercise Program,Joint Mobilizations,Manual Therapy,Neuromuscular Re-education,Patient/Caregiver Education,Self-Care/Home Management,Soft Tissue Mobilization,Therapeutic Activities,Therapeutic Exercises Modalities Cold Pack/Ice Massage,Electric Stimulation,Hot Packs, Infrared Therapy,Traction- Mechanical,Ultrasound Next Visit Focus/Plan Next Note Type Treatment Note Next Visit Plan REcheck HEP: newest LAQ and HS curl with TB. POC: manual for ITB/TFL, assess patellar tracking during activities; progress exercises in program pt already does in classes or add new exercises for LE strength, next incorporate SL strengthening, static/ dynamic balance, foam, assess HEP: TFL, ITB, quad stretch, lunges
--- NOTE | 2025-01-01 17:01 | PT.OTN ---
Current Diagnoses Strain of unspecified muscle(s) and tendon(s) at lower leg level, right leg, subsequent encounter (01/06/25) Physical Therapy Treatment Note PT-OP-A Visit Information Start: 11/27/24 08:18 Freq: Status: Active Protocol: Document 01/01/25 11:35 NBM (Rec: 01/06/25 17:00 NBM Laptop) Out-Patient Physical Therapy Visit Information Visit Information Visit Type Treatment Note Visit Start Time 11:35 Visit Stop Time 12:15 Visit Number 6 Number of PARTY PLAN SALES DIRECTOR Visits 4 PT-OP-B Current Condition Start: 11/27/24 08:18 Freq: Status: Active Protocol: Document 11/27/24 08:18 GG (Rec: 11/27/24 09:08 GG Laptop) Current Condition History of Current Condition Onset Date 1 month ago Current Complaints R knee pain History of Current Pt reports that she was at the [facility] [employer] doing a [employer] class and her knee was painful and swollen the following morning. Couldn't walk the next day, but had crutches available to use. Went to urgent care and got x-rays, no fractures. Was prescribed a stronger NSAID (aleve) and pain lasted for another 2 days and went back to normal. Notes pain when sweeping the leg behind the other and bringing it back to neutral, and can sometimes click too. Difficulty w/ balance and has been practicing SLS at home. Has a trip planned to [place] in January. Notes she has not been walking as much as she used to d/t balance difficulties, but was thinking about get trekking poles. Has an exercise program that she does 6x/wk and workout classes. Hx of 4th metatarsal fx a couple years ago. No hx of back pain. Treatment Goals Patient/Caregiver LE strength, balance Goals PT-OP-C Subjective Start: 11/27/24 08:18 Freq: Status: Active Protocol: Document 01/01/25 11:35 NBM (Rec: 01/06/25 17:00 NBM Laptop) OP-PT Subjective Patient Comments Patient Comments Aurelia reports she is doing better. K-tape didn't seem to make a difference. She does her exercises except for the ones one her stomach. She really likes the stretches on her back. She will be waking around [place] in January and can take bands with her but isn't sure how realistic current HEP will be for walking around and sitting while there. PT-OP-D Balance Start: 11/27/24 08:18 Freq: Status: Active Protocol: Document 11/27/24 08:18 GG (Rec: 11/27/24 09:08 GG Laptop) Balance Tests Single Limb Standing Single Limb- Right 8 sec Single Limb- Left 5 sec PT-OP-E Functional Tests Start: 11/27/24 08:18 Freq: Status: Active Protocol: Document 12/02/24 09:04 GG (Rec: 12/02/24 10:14 GG [id number]) Functional Tests Functional Gait Assessment Score PT-OP-L Special Tests Start: 11/27/24 08:18 Freq: Status: Active Protocol: Document 11/27/24 08:18 GG (Rec: 11/27/24 09:08 GG Laptop) Special Tests Hip Special Tests Obers Test Results neg Knee Special Tests thessaly Test Results neg delma's compression Test Results pos on R PT-OP-M Strength Start: 11/27/24 08:18 Freq: Status: Active Protocol: Document 11/27/24 08:18 GG (Rec: 11/27/24 09:08 GG Laptop) Hip Strength Hip Manual Muscle Testing Right Flexion (L2) 4 Good Extension (S1) 4 Good Abduction 3+ Fair+ Adduction 4+ Good+ External Rotation 4 Good Internal Rotation 4+ Good+ Comments pt notes mild pain w/ flexion, ER, and IR Left Flexion (L2) 4 Good Extension (S1) 4 Good Abduction 4 Good Adduction 4+ Good+ External Rotation 4 Good Internal Rotation 4+ Good+ Knee Strength Knee Manual Muscle Testing Right Flexion (S2) 4+ Good+ Extension (L3) 4+ Good+ Left Flexion (S2) 4 Good Extension (L3) 4+ Good+ Ankle/Foot Strength Ankle and Foot Manual Muscle Testing Right Dorsiflexion (L4) 4+ Good+ Plantarflexion (S1) 5 Normal Left Dorsiflexion (L4) 4 Good Plantarflexion (S1) 5 Normal PT-OP-Q Treatments Start: 11/27/24 08:18 Freq: Status: Active Protocol: Document 01/01/25 11:35 NBM (Rec: 01/06/25 17:00 NBM Laptop) Gym Equipment Shuttle Recovery Bilateral Squat Details warm up Resistance 50# (2 navy bands) Reps/Time 30 reps unlocked range comfortable Unilateral Squat Details cued knee alignment with forefoot, glut drive Resistance 50# (2 navy bands) Reps/Time 15 reps Therapeutic Exercises Supine Exercises stretches Supine Exercise Name Reviewed HEP past/present: 1. HS 2. ITB Side bilateral Equipment Used w/ strap on foot Reps/Minutes 30-60 sec each Comments cued neutral pelvis, bend knee for painfree ITB stretch, breath Prone Exercises quad stretch Prone Exercise Name modified to standing (pt not performing prone) Side bilateral Equipment Used handrail,holds back of lower pant leg (to simulate while walking in [place]) Reps/Minutes 60sec Comments cues set up to maintain LE alignment Standing Exercises HS curls Standing Exercise HEP review Name Side bilateral Equipment Used handrail, Tb #1 around ankle/under opp arch Reps/Minutes 5 reps x2 Comments cued slow light tension initially so no HS cramp hip extension Resistance L2 band Equipment Used handrail Reps/Minutes 10x B Comments cues for upright posture, neutral foot postiion hip ABD Standing Exercise Abduction and Extension Name Side bilateral Resistance L2 teal green home Reps/Minutes 10x2 Comments cues for upright posture, neutral foot postiion squats Standing Exercise squat taps to chair Name Side bilateral Resistance TB #3 around knees Equipment Used arms across chest Reps/Minutes 10 reps Comments cued TA with hip hinge, ecc control, breathwork Neuro Re-Education Treatment Balance Activities tandem Details stance and fwd/bwd walking Surface tile Equipment handrail prn Reps/Duration 1. 30s trials EO/EC 2. 2x15 ft ea Comments cues for full tandem, upright posture, gluteal engagement and slower pacing w/ ambulation. EC stance challenging. Self-Care/Home Management Treatment Education Patient Education Body Mechanics,Home Exercise Program,Pain Management, Posture,Safety Other Education Significant time spent educating pt to stretch in pain- free range and role of breath in activating parasympathetic ns for pain dampening and improving ROM . Edu to pt re: TrA anatomy and interreleationship with diaphragm and pelvic floor, importance of not breathholding. PT-OP-T Assessment and Plan Start: 11/27/24 08:18 Freq: Status: Active Protocol: Document 01/01/25 11:35 NBM (Rec: 01/06/25 17:00 NBM Laptop) Physical Therapy Assessment Goals pain Purchasing/Receiving Goal (LTG) Pt will be able to perform exercises w/o R knee pain for better performance of functional goals. LTG Duration 01/22/25 strength Short Term Goal (STG Pt will be independent in HEP. ) STG Duration 12/26/24 Purchasing/Receiving Goal (LTG) Pt will score at least a 4+/5 on BLE MMTs to show improved strength for better ability to fulfill activities. LTG Duration 01/22/25 balance Short Term Goal (STG Pt will be able to get at least 10 sec hold B for SLS ) to meet age-related norms. STG Duration 12/26/24 Purchasing/Receiving Goal (LTG) Pt will be able to get at least 15 sec hold B for SLS for better performance of functional activities. LTG Duration 01/22/25 Assessment Summary Assessment Treatment focus on HEP review with emphasis on foot positioning, hip hinge and breathwork. Aurelia's knee pain improves with cues for hip hinge with chair taps. She demonstrates improved self-awareness by end of session for each and self-corrects breathholding, posture, and for neutral foot positioning. Modified prone quad stretch to standing with cues for LE alignment.
--- NOTE | 2025-01-06 17:57 | PT.OTN ---
Current Diagnoses Strain of unspecified muscle(s) and tendon(s) at lower leg level, right leg, subsequent encounter (01/06/25) Physical Therapy Treatment Note PT-OP-A Visit Information Start: 11/27/24 08:18 Freq: Status: Active Protocol: Document 01/06/25 16:19 [facility] (Rec: 01/06/25 17:05 [facility] [id number]) Out-Patient Physical Therapy Visit Information Visit Information Visit Type Progress Note Visit Start Time 16:20 Visit Stop Time 17:00 Visit Number 6 Number of DETENTION ATTENDANT Visits 0 PT-OP-B Current Condition Start: 11/27/24 08:18 Freq: Status: Active Protocol: Document 11/27/24 08:18 GG (Rec: 11/27/24 09:08 GG Laptop) Current Condition History of Current Condition Onset Date 1 month ago Current Complaints R knee pain History of Current Pt reports that she was at the [facility] [employer] [place] [employer] doing a [employer] class and her knee was painful and swollen the following morning. Couldn't walk the next day, but had crutches available to use. Went to urgent care and got x-rays, no fractures. Was prescribed a stronger NSAID (aleve) and pain lasted for another 2 days and went back to normal. Notes pain when sweeping the leg behind the other and bringing it back to neutral, and can sometimes click too. Difficulty w/ balance and has been practicing SLS at home. Has a trip planned to [place] in January. Notes she has not been walking as much as she used to d/t balance difficulties, but was thinking about get trekking poles. Has an exercise program that she does 6x/wk and workout classes. Hx of 4th metatarsal fx a couple years ago. No hx of back pain. Treatment Goals Patient/Caregiver LE strength, balance Goals PT-OP-C Subjective Start: 11/27/24 08:18 Freq: Status: Active Protocol: Document 01/06/25 16:19 [facility] (Rec: 01/06/25 17:05 [facility] [id number]) OP-PT Subjective Patient Comments Patient Comments pt reports no knee pain recently. sometimes knee will click when getting out of a cross leg position. Some mild soreness to lat knee. PT-OP-D Balance Start: 11/27/24 08:18 Freq: Status: Active Protocol: Document 11/27/24 08:18 GG (Rec: 11/27/24 09:08 GG Laptop) Balance Tests Single Limb Standing Single Limb- Right 8 sec Single Limb- Left 5 sec PT-OP-E Functional Tests Start: 11/27/24 08:18 Freq: Status: Active Protocol: Document 12/02/24 09:04 GG (Rec: 12/02/24 10:14 GG [id number]) Functional Tests Functional Gait Assessment Score 21/30 PT-OP-L Special Tests Start: 11/27/24 08:18 Freq: Status: Active Protocol: Document 11/27/24 08:18 GG (Rec: 11/27/24 09:08 GG Laptop) Special Tests Hip Special Tests Obers Test Results neg Knee Special Tests thessaly Test Results neg delma's compression Test Results pos on R PT-OP-M Strength Start: 11/27/24 08:18 Freq: Status: Active Protocol: Document 01/06/25 16:19 [facility] (Rec: 01/06/25 17:05 [facility] [id number]) Hip Strength Hip Manual Muscle Testing Right Flexion (L2) 4+ Good+ Extension (S1) 3+ Fair+ Abduction 4 Good Adduction 5 Normal External Rotation 4 Good Internal Rotation 4+ Good+ Left Flexion (L2) 4+ Good+ Extension (S1) 3+ Fair+ Abduction 4+ Good+ Adduction 4+ Good+ External Rotation 4 Good Internal Rotation 4+ Good+ Knee Strength Knee Manual Muscle Testing Right Flexion (S2) 5 Normal Extension (L3) 5 Normal Left Flexion (S2) 5 Normal Extension (L3) 5 Normal Ankle/Foot Strength Ankle and Foot Manual Muscle Testing Right Dorsiflexion (L4) 5 Normal Plantarflexion (S1) 5 Normal Left Dorsiflexion (L4) 5 Normal Plantarflexion (S1) 5 Normal PT-OP-Q Treatments Start: 11/27/24 08:18 Freq: Status: Active Protocol: Document 01/06/25 16:19 [facility] (Rec: 01/06/25 17:05 [facility] [id number]) Therapeutic Exercises Supine Exercises stretches Supine Exercise Name HS & ITB and piriformis Side right Reps/Minutes 30 sec ea Standing Exercises stretch Standing Exercise quad Name Side right hip extension Resistance L2 band Reps/Minutes 10x B heel raises Standing Exercise Sl Name Reps/Minutes 5 ea hip ABD Standing Exercise sidstep Name Side bilateral Resistance L2 teal green home Reps/Minutes 20ft Comments cue for posture ; did 8x standing abd but pain R knee w /Wb squats Standing Exercise squat taps Name Side bilateral Resistance TB #3 around knees, none, L1 Equipment Used arms across chest Reps/Minutes 10 reps, 10 reps, 15 reps PT-OP-T Assessment and Plan Start: 11/27/24 08:18 Freq: Status: Active Protocol: Document 01/06/25 16:19 [facility] (Rec: 01/06/25 17:05 [facility] [id number]) Physical Therapy Assessment Goals pain Assisted Goal (LTG) Pt will be able to perform exercises w/o R knee pain for better performance of functional goals. LTG Duration achieved 01/06 strength Short Term Goal (STG Pt will be independent in HEP. ) STG Duration achieved advancing as able Assisted Goal (LTG) Pt will score at least a 4+/5 on BLE MMTs to show improved strength for better ability to fulfill activities. 01/06-much improved LTG Duration 01/22/25 balance Short Term Goal (STG Pt will be able to get at least 10 sec hold B for SLS ) to meet age-related norms. 7/15-23 sec R, L 28 sec STG Duration achievd 15 Hvac Controls Technician Goal (LTG) Pt will be able to get at least 15 sec hold B for SLS for better performance of functional activities. 7/15-23 sec R, L 28 sec LTG Duration achieved 01/06 Assessment Summary Assessment pt making good progress with PT and has improved with strength and balance with dec c/o pain. Still some discomfort noted occasionally though and would benefit from cont PT to improve this. Inc time taken with each exercise for hEP performance Physical Therapy Plan Frequency and Duration Frequency of 1-2x/wk Treatment Duration of 8 treatment (weeks) Plan of Care Start 11/27/24 Date Plan of Care End 01/22/25 Date Next Visit Focus/Plan Next Note Type Treatment Note Next Visit Plan review HEP as needed, manual to ITB, balance exercises
--- NOTE | 2025-01-12 11:52 | PT.OTN ---
Current Diagnoses Strain of unspecified muscle(s) and tendon(s) at lower leg level, right leg, subsequent encounter (01/12/25) Physical Therapy Treatment Note PT-OP-A Visit Information Start: 11/27/24 08:18 Freq: Status: Active Protocol: Document 01/12/25 07:31 [facility] (Rec: 01/12/25 11:51 [facility] [id number]) Out-Patient Physical Therapy Visit Information Visit Information Visit Type Treatment Note Visit Start Time 07:33 Visit Stop Time 08:13 Visit Number 7 Number of VP PUBLISHER DEVELOPMENT Visits 0 PT-OP-B Current Condition Start: 11/27/24 08:18 Freq: Status: Active Protocol: Document 11/27/24 08:18 GG (Rec: 11/27/24 09:08 GG Laptop) Current Condition History of Current Condition Onset Date 1 month ago Current Complaints R knee pain History of Current Pt reports that she was at the [facility] [employer] Condition doing a [employer] class and her knee was painful and swollen the following morning. Couldn't walk the next day, but had crutches available to use. Went to urgent care and got x-rays, no fractures. Was prescribed a stronger NSAID (aleve) and pain lasted for another 2 days and went back to normal. Notes pain when sweeping the leg behind the other and bringing it back to neutral, and can sometimes click too. Difficulty w/ balance and has been practicing SLS at home. Has a trip planned to [place] in January. Notes she has not been walking as much as she used to d/t balance difficulties, but was thinking about get trekking poles. Has an exercise program that she does 6x/wk and workout classes. Hx of 4th metatarsal fx a couple years ago. No hx of back pain. Treatment Goals Patient/Caregiver LE strength, balance Goals PT-OP-C Subjective Start: 11/27/24 08:18 Freq: Status: Active Protocol: Document 01/12/25 07:31 [facility] (Rec: 01/12/25 11:51 [facility] [id number]) OP-PT Subjective Patient Comments Patient Comments Sunday, she hit her toe on the edge of a grijalva bed PT-OP-D Balance Start: 11/27/24 08:18 Freq: Status: Active Protocol: Document 11/27/24 08:18 GG (Rec: 11/27/24 09:08 GG Laptop) Balance Tests Single Limb Standing Single Limb- Right 8 sec Single Limb- Left 5 sec PT-OP-E Functional Tests Start: 11/27/24 08:18 Freq: Status: Active Protocol: Document 12/02/24 09:04 GG (Rec: 12/02/24 10:14 GG [id number]) Functional Tests Functional Gait Assessment Score 21/30 PT-OP-L Special Tests Start: 11/27/24 08:18 Freq: Status: Active Protocol: Document 11/27/24 08:18 GG (Rec: 11/27/24 09:08 GG Laptop) Special Tests Hip Special Tests Obers Test Results neg Knee Special Tests thessaly Test Results neg delma's compression Test Results pos on R PT-OP-M Strength Start: 11/27/24 08:18 Freq: Status: Active Protocol: Document 01/06/25 16:19 [facility] (Rec: 01/06/25 17:05 [facility] [id number]) Hip Strength Hip Manual Muscle Testing Right Flexion (L2) 4+ Good+ Extension (S1) 3+ Fair+ Abduction 4 Good Adduction 5 Normal External Rotation 4 Good Internal Rotation 4+ Good+ Left Flexion (L2) 4+ Good+ Extension (S1) 3+ Fair+ Abduction 4+ Good+ Adduction 4+ Good+ External Rotation 4 Good Internal Rotation 4+ Good+ Knee Strength Knee Manual Muscle Testing Right Flexion (S2) 5 Normal Extension (L3) 5 Normal Left Flexion (S2) 5 Normal Extension (L3) 5 Normal Ankle/Foot Strength Ankle and Foot Manual Muscle Testing Right Dorsiflexion (L4) 5 Normal Plantarflexion (S1) 5 Normal Left Dorsiflexion (L4) 5 Normal Plantarflexion (S1) 5 Normal PT-OP-Q Treatments Start: 11/27/24 08:18 Freq: Status: Active Protocol: Document 01/12/25 07:31 [facility] (Rec: 01/12/25 11:51 [facility] [id number]) Manual Therapy Treatment Soft Tissue Mobilization ITB Body Location R distal ITB Comments W/active HS stretch and IR Joint Mobilizations hip Comments R hip free the ball ER and IR c/r tib fib Comments proximal AP tibiofemoral Comments AP w/IR patellofemoral Comments Sup, inf, med, med tilt Self-Care/Home Management Treatment Activities Self-Care/Home 8 min: tuning fork to MT 3 and phalange neg but some Management pain w/palpation ; encouraged to follow up at walk in Activities to just check in prior to all travels. PT-OP-T Assessment and Plan Start: 11/27/24 08:18 Freq: Status: Active Protocol: Document 01/12/25 07:31 [facility] (Rec: 01/12/25 11:51 [facility] [id number]) Physical Therapy Assessment Goals pain Intermediate Goal (LTG) Pt will be able to perform exercises w/o R knee pain for better performance of functional goals. LTG Duration achieved 15 strength Short Term Goal (STG Pt will be independent in HEP. ) STG Duration achieved advancing as able Health Professor Goal (LTG) Pt will score at least a 4+/5 on BLE MMTs to show improved strength for better ability to fulfill activities. 15-much improved LTG Duration 01/22/25 balance Short Term Goal (STG Pt will be able to get at least 10 sec hold B for SLS ) to meet age-related norms. 7/15-23 sec R, L 28 sec STG Duration achievd 7/15 Health Professor Goal (LTG) Pt will be able to get at least 15 sec hold B for SLS for better performance of functional activities. 7/15-23 sec R, L 28 sec LTG Duration achieved 15 Assessment Summary Assessment Pt did well with manual with improvedR hip IR/ER and improved ext after manual care. Physical Therapy Plan Frequency and Duration Frequency of 1-2x/wk Treatment Duration of 8 treatment (weeks) Plan of Care Start 11/27/24 Date Plan of Care End 01/22/25 Date Next Visit Focus/Plan Next Note Type Treatment Note Next Visit Plan check in re: foot and if got checked out. give supine/ seated exercises if needed
--- NOTE | 2025-01-15 12:56 | PT.OTN ---
Current Diagnoses Strain of unspecified muscle(s) and tendon(s) at lower leg level, right leg, subsequent encounter (01/15/25) Physical Therapy Treatment Note PT-OP-A Visit Information Start: 11/27/24 08:18 Freq: Status: Active Protocol: Document 01/15/25 10:48 NBM (Rec: 01/15/25 12:56 NBM Laptop) Out-Patient Physical Therapy Visit Information Visit Information Visit Type Treatment Note Visit Start Time 10:50 Visit Stop Time 11:40 Visit Number 8 Number of CONSTRUCTION REP Visits 1 PT-OP-B Current Condition Start: 11/27/24 08:18 Freq: Status: Active Protocol: Document 11/27/24 08:18 GG (Rec: 11/27/24 09:08 GG Laptop) Current Condition History of Current Condition Onset Date 1 month ago Current Complaints R knee pain History of Current Pt reports that she was at the [facility] [employer] doing a [employer] class and her knee was painful and swollen the following morning. Couldn't walk the next day, but had crutches available to use. Went to urgent care and got x-rays, no fractures. Was prescribed a stronger NSAID (aleve) and pain lasted for another 2 days and went back to normal. Notes pain when sweeping the leg behind the other and bringing it back to neutral, and can sometimes click too. Difficulty w/ balance and has been practicing SLS at home. Has a trip planned to [place] in January. Notes she has not been walking as much as she used to d/t balance difficulties, but was thinking about get trekking poles. Has an exercise program that she does 6x/wk and workout classes. Hx of 4th metatarsal fx a couple years ago. No hx of back pain. Treatment Goals Patient/Caregiver LE strength, balance Goals PT-OP-C Subjective Start: 11/27/24 08:18 Freq: Status: Active Protocol: Document 01/15/25 10:48 NBM (Rec: 01/15/25 12:56 NBM Laptop) OP-PT Subjective Patient Comments Patient Comments Aurelia reports that she got an x-ray for 3rd toe and it isn't fractured. She says the x-ray report said there might be a fracture in the tip but her doctor said he doesn't think so. Last night it was feeling really good and she's been taping her two toes together but forgot today. PT-OP-D Balance Start: 11/27/24 08:18 Freq: Status: Active Protocol: Document 11/27/24 08:18 GG (Rec: 11/27/24 09:08 GG Laptop) Balance Tests Single Limb Standing Single Limb- Right 8 sec Single Limb- Left 5 sec PT-OP-E Functional Tests Start: 11/27/24 08:18 Freq: Status: Active Protocol: Document 12/02/24 09:04 GG (Rec: 12/02/24 10:14 GG [id number]) Functional Tests Functional Gait Assessment Score 2130 PT-OP-L Special Tests Start: 11/27/24 08:18 Freq: Status: Active Protocol: Document 11/27/24 08:18 GG (Rec: 11/27/24 09:08 GG Laptop) Special Tests Hip Special Tests Obers Test Results neg Knee Special Tests thessaly Test Results neg delma's compression Test Results pos on R PT-OP-M Strength Start: 11/27/24 08:18 Freq: Status: Active Protocol: Document 01/06/25 16:19 [facility] (Rec: 01/06/25 17:05 [facility] [id number]) Hip Strength Hip Manual Muscle Testing Right Flexion (L2) 4+ Good+ Extension (S1) 3+ Fair+ Abduction 4 Good Adduction 5 Normal External Rotation 4 Good Internal Rotation 4+ Good+ Left Flexion (L2) 4+ Good+ Extension (S1) 3+ Fair+ Abduction 4+ Good+ Adduction 4+ Good+ External Rotation 4 Good Internal Rotation 4+ Good+ Knee Strength Knee Manual Muscle Testing Right Flexion (S2) 5 Normal Extension (L3) 5 Normal Left Flexion (S2) 5 Normal Extension (L3) 5 Normal Ankle/Foot Strength Ankle and Foot Manual Muscle Testing Right Dorsiflexion (L4) 5 Normal Plantarflexion (S1) 5 Normal Left Dorsiflexion (L4) 5 Normal Plantarflexion (S1) 5 Normal PT-OP-Q Treatments Start: 11/27/24 08:18 Freq: Status: Active Protocol: Document 01/15/25 10:48 NBM (Rec: 01/15/25 12:56 NBM Laptop) Therapeutic Exercises Supine Exercises heel digs Supine Exercise Name Added to non-WB HEP Side bilateral Reps/Minutes 5 x 10SH ea stretches Supine Exercise Name HS & ITB and piriformis Side right Reps/Minutes 30 sec ea Comments verbal review Prone Exercises SLR Prone Exercise Name hip extension Added to non-WB HEP Side bilateral Reps/Minutes 5 ea quad stretch Prone Exercise Name Added to non-WB HEP Side bilateral Equipment Used pillow under hips, strap Reps/Minutes 60sec ea Comments positive feedback response Sidelying Exercises Clamshells Sidelying Exercise Added to non-WB HEP. Name Side bilateral Resistance Lvl 3 Tb Reps/Minutes 10 ea Hip abduction Sidelying Exercise SLR w/ slight extension. Added to non-WB HEP. Name Side bilateral Resistance gravity Reps/Minutes 10 ea Comments cues for fully on side initial set up Sitting Exercises HS stretch Sitting Exercise Added to non-WB HEP Name Side bilateral Reps/Minutes 2 x30s ea Comments cues for painfree range HS curl Sitting Exercise Added to non-WB HEP Name Side bilateral Resistance Lvl 2 Tb teal looped around both ankles Reps/Minutes x10 ea Comments painfree Self-Care/Home Management Treatment Education Patient Education Home Exercise Program Other Education Added to HEP: Seated HS curls w/ Lvl 2 Tb, HS stretch; Supine heel digs; Prone quad stretch w/ strap, hip ext; Sidelying SLR, Clamshells w/ Lvl 3 TB - HO given. PT-OP-T Assessment and Plan Start: 11/27/24 08:18 Freq: Status: Active Protocol: Document 01/15/25 10:48 NBM (Rec: 01/15/25 12:56 NBM Laptop) Physical Therapy Assessment Goals pain Operations Asst Goal (LTG) Pt will be able to perform exercises w/o R knee pain for better performance of functional goals. LTG Duration achieved 01/06 strength Short Term Goal (STG Pt will be independent in HEP. ) STG Duration achieved advancing as able Operations Asst Goal (LTG) Pt will score at least a 4+/5 on BLE MMTs to show improved strength for better ability to fulfill activities. 01/06-much improved LTG Duration 01/22/25 balance Short Term Goal (STG Pt will be able to get at least 10 sec hold B for SLS ) to meet age-related norms. 01/06-23 sec R, L 28 sec STG Duration achievd 01/06 Nursing Home Goal (LTG) Pt will be able to get at least 15 sec hold B for SLS for better performance of functional activities. 01/06-23 sec R, L 28 sec LTG Duration achieved 01/06 Assessment Summary Assessment Aurelia presents following X ray for toe reporting reports not fractured, badly bruised. Per evaluating PT treatment focus on non-weightbearing stretching and strengthening for patient to perform over the next 2-3 weeks while recovering - HO given (see Self-care). PT-Therapy Code Fee Billing Start: 11/27/24 08:18 Freq: Status: Active Protocol: Document 01/12/25 07:31 [facility] (Rec: 01/12/25 11:51 [facility] [id number]) Physical Therapy Total Visit Minutes 40 PT Charge Codes - Fee KX Modifier Therapy Cap No Exclusion Modifier Manual Therapy (51882) Minutes 32 PT Unit(s) per 15 2 min Self Care/Home Management (01543) Minutes 8 PT Unit(s) per 15 1 Minutes CONSTRUCTION REP-Therapy Code Fee Billing Start: 11/27/24 08:18 Freq: Status: Active Protocol: Document 01/15/25 10:48 NBM (Rec: 01/15/25 12:56 NBM Laptop) Physical Therapy Total Visit Minutes 50 CONSTRUCTION REP Charge Codes - Fee KX Modifier Therapy Cap No Exclusion Modifier Therapeutic Exercise (01549) Minutes 37 CONSTRUCTION REP Unit(s) per 15 2 min Self Care/Home Management (68060) Minutes 13 CONSTRUCTION REP Unit(s) per 15 1 Minutes
--- NOTE | 2025-01-19 17:57 | PT.OTN ---
Current Diagnoses Strain of unspecified muscle(s) and tendon(s) at lower leg level, right leg, subsequent encounter (01/19/25) Physical Therapy Treatment Note PT-OP-A Visit Information Start: 11/27/24 08:18 Freq: Status: Active Protocol: Document 01/19/25 16:15 [facility] (Rec: 01/19/25 17:56 [facility] [id number]) Out-Patient Physical Therapy Visit Information Visit Information Visit Type Discharge Summary Visit Start Time 17:07 Visit Stop Time 17:45 Visit Number 9 Number of DOUGHNUT [employer] MIXER Visits 0 PT-OP-B Current Condition Start: 11/27/24 08:18 Freq: Status: Active Protocol: Document 11/27/24 08:18 GG (Rec: 11/27/24 09:08 GG Laptop) Current Condition History of Current Condition Onset Date 1 month ago Current Complaints R knee pain History of Current Pt reports that she was at the [facility] doing a [employer] class and her knee was painful and swollen the following morning. Couldn't walk the next day, but had crutches available to use. Went to urgent care and got x-rays, no fractures. Was prescribed a stronger NSAID (aleve) and pain lasted for another 2 days and went back to normal. Notes pain when sweeping the leg behind the other and bringing it back to neutral, and can sometimes click too. Difficulty w/ balance and has been practicing SLS at home. Has a trip planned to [place] in January. Notes she has not been walking as much as she used to d/t balance difficulties, but was thinking about get trekking poles. Has an exercise program that she does 6x/wk and workout classes. Hx of 4th metatarsal fx a couple years ago. No hx of back pain. Treatment Goals Patient/Caregiver LE strength, balance Goals PT-OP-C Subjective Start: 11/27/24 08:18 Freq: Status: Active Protocol: Document 01/19/25 16:15 [facility] (Rec: 01/19/25 17:56 [facility] [id number]) OP-PT Subjective Patient Comments Patient Comments notes less foot pain and could put a shoe on PT-OP-D Balance Start: 11/27/24 08:18 Freq: Status: Active Protocol: Document 11/27/24 08:18 GG (Rec: 11/27/24 09:08 GG Laptop) Balance Tests Single Limb Standing Single Limb- Right 8 sec Single Limb- Left 5 sec PT-OP-E Functional Tests Start: 11/27/24 08:18 Freq: Status: Active Protocol: Document 12/02/24 09:04 GG (Rec: 12/02/24 10:14 GG [id number]) Functional Tests Functional Gait Assessment Score 21/30 PT-OP-L Special Tests Start: 11/27/24 08:18 Freq: Status: Active Protocol: Document 11/27/24 08:18 GG (Rec: 11/27/24 09:08 GG Laptop) Special Tests Hip Special Tests Obers Test Results neg Knee Special Tests thessaly Test Results neg delma's compression Test Results pos on R PT-OP-M Strength Start: 11/27/24 08:18 Freq: Status: Active Protocol: Document 01/19/25 16:15 [facility] (Rec: 01/19/25 17:56 [facility] [id number]) Hip Strength Hip Manual Muscle Testing Right Flexion (L2) 4+ Good+ Extension (S1) 4 Good Abduction 5 Normal Adduction 5 Normal External Rotation 4 Good Internal Rotation 4+ Good+ Left Flexion (L2) 4+ Good+ Extension (S1) 4 Good Abduction 5 Normal Adduction 4+ Good+ External Rotation 4 Good Internal Rotation 4+ Good+ Knee Strength Knee Manual Muscle Testing Right Flexion (S2) 5 Normal Extension (L3) 5 Normal Left Flexion (S2) 5 Normal Extension (L3) 5 Normal Ankle/Foot Strength Ankle and Foot Manual Muscle Testing Right Comments n/t d/t toe injury PT-OP-Q Treatments Start: 11/27/24 08:18 Freq: Status: Active Protocol: Document 01/19/25 16:15 [facility] (Rec: 01/19/25 17:56 [facility] [id number]) Therapeutic Exercises Supine Exercises Bridge with TB Supine Exercise Name SL bridge Side bilateral Reps/Minutes 10 Prone Exercises SLR Prone Exercise Name hip extension Added to non-WB HEP Side bilateral Reps/Minutes 5 ea Sidelying Exercises stretch Sidelying Exercise quad Name Side bilateral Reps/Minutes 30 sec Clamshells Sidelying Exercise review to non-WB HEP. Name Side bilateral Resistance Lvl 3 Tb Reps/Minutes 12 ea Hip abduction Sidelying Exercise SLR w/ slight extension. review to non-WB HEP. Name Side bilateral Resistance gravity Reps/Minutes 12 ea Comments cues for hip neutral Self-Care/Home Management Treatment Education Other Education 12 min: edu ice and resting and avoiding standing exercises until after vacation then can try again and only resume if does not inc pain; edu to do laying and seated exercises until then PT-OP-T Assessment and Plan Start: 11/27/24 08:18 Freq: Status: Active Protocol: Document 01/19/25 16:15 [facility] (Rec: 01/19/25 17:56 [facility] [id number]) Physical Therapy Assessment Goals pain Guide Goal (LTG) Pt will be able to perform exercises w/o R knee pain for better performance of functional goals. LTG Duration achieved 01/06 strength Short Term Goal (STG Pt will be independent in [facility]. ) STG Duration achieved advancing as able Guide Goal (LTG) Pt will score at least a 4+/5 on BLE MMTs to show improved strength for better ability to fulfill activities. 01/06-much improved 01/19-mostly achieved LTG Duration mostly achieved balance Short Term Goal (STG Pt will be able to get at least 10 sec hold B for SLS ) to meet age-related norms. 715-23 sec R, L 28 sec STG Duration achievd 01/06 Guide Goal (LTG) Pt will be able to get at least 15 sec hold B for SLS for better performance of functional activities. 7/15-23 sec R, L 28 sec LTG Duration achieved 01/06 Assessment Summary Assessment Pt has met most goals through progression of PT. She has not been able to balance recently d/t R toe injury but that is separate. She is doing well w/HEP w/min cues and is DC to [facility] Physical Therapy Plan Discharge Physical Therapy Discharge Reasons Goals Met
--- NOTE | 2025-01-19 17:57 | PT.OPDS ---
Current Diagnoses Strain of unspecified muscle(s) and tendon(s) at lower leg level, right leg, subsequent encounter (01/19/25) Visit Care Team Role Provider Type Carl Farias MD Family Provider Physician Primary Care Provider Specialty: Internal Medicine Address: [address] [place] [address], [id number] Email: [email or web address] Radha Rios PA-C Attending Provider Advanced Natural Resources Specialist Referring Provider Specialty: Medical Wound Care Address: [address] [place] [address], [id number] Email: [email or web address] Visit Number Visit Number 9 Discharge Summary PT-OP-B Current Condition Start: 11/27/24 08:18 Freq: Status: Active Protocol: Document 11/27/24 08:18 GG (Rec: 11/27/24 09:08 GG Laptop) Current Condition History of Current Condition Onset Date 1 month ago Current Complaints R knee pain History of Current Pt reports that she was at the [facility] [employer] 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 Couldn't walk the next day, but had crutches available to use. Went to urgent care and got x-rays, no fractures. Was prescribed a stronger NSAID (aleve) and pain lasted for another 2 days and went back to normal. Notes pain when sweeping the leg behind the other and bringing it back to neutral, and can sometimes click too. Difficulty w/ balance and has been practicing SLS at home. Has a trip planned to [place] in January. Notes she has not been walking as much as she used to d/t balance difficulties, but was thinking about get trekking poles. Has an exercise program that she does 6x/wk and workout classes. Hx of 4th metatarsal fx a couple years ago. No hx of back pain. Treatment Goals Patient/Caregiver LE strength, balance Goals PT-OP-C Subjective Start: 11/27/24 08:18 Freq: Status: Active Protocol: Document 01/19/25 16:15 [facility] (Rec: 01/19/25 17:56 [facility] [id number]) OP-PT Subjective Patient Comments Patient Comments notes less foot pain and could put a shoe on PT-OP-D Balance Start: 11/27/24 08:18 Freq: Status: Active Protocol: Document 11/27/24 08:18 GG (Rec: 11/27/24 09:08 GG Laptop) Balance Tests Single Limb Standing Single Limb- Right 8 sec Single Limb- Left 5 sec PT-OP-E Functional Tests Start: 11/27/24 08:18 Freq: Status: Active Protocol: Document 12/02/24 09:04 GG (Rec: 12/02/24 10:14 GG [id number]) Functional Tests Functional Gait Assessment Score 30 PT-OP-L Special Tests Start: 11/27/24 08:18 Freq: Status: Active Protocol: Document 11/27/24 08:18 GG (Rec: 11/27/24 09:08 GG Laptop) Special Tests Hip Special Tests Obers Test Results neg Knee Special Tests thessaly Test Results neg delma's compression Test Results pos on R PT-OP-M Strength Start: 11/27/24 08:18 Freq: Status: Active Protocol: Document 01/19/25 16:15 [facility] (Rec: 01/19/25 17:56 [facility] [id number]) Hip Strength Hip Manual Muscle Testing Right Flexion (L2) 4+ Good+ Extension (S1) 4 Good Abduction 5 Normal Adduction 5 Normal External Rotation 4 Good Internal Rotation 4+ Good+ Left Flexion (L2) 4+ Good+ Extension (S1) 4 Good Abduction 5 Normal Adduction 4+ Good+ External Rotation 4 Good Internal Rotation 4+ Good+ Knee Strength Knee Manual Muscle Testing Right Flexion (S2) 5 Normal Extension (L3) 5 Normal Left Flexion (S2) 5 Normal Extension (L3) 5 Normal Ankle/Foot Strength Ankle and Foot Manual Muscle Testing Right Comments n/t d/t toe injury PT-OP-T Assessment and Plan Start: 11/27/24 08:18 Freq: Status: Active Protocol: Document 01/19/25 16:15 LR (Rec: 01/19/25 17:56 [facility] [id number]) Physical Therapy Assessment Goals pain Longterm Goal (LTG) Pt will be able to perform exercises w/o R knee pain for better performance of functional goals. LTG Duration achieved 15 strength Short Term Goal (STG Pt will be independent in HEP. ) STG Duration achieved advancing as able Longterm Goal (LTG) Pt will score at least a 4+/5 on BLE MMTs to show improved strength for better ability to fulfill activities. 01/06-much improved 01/19-mostly achieved LTG Duration mostly achieved balance Short Term Goal (STG Pt will be able to get at least 10 sec hold B for SLS ) to meet age-related norms. 01/06-23 sec R, L 28 sec STG Duration achievd 01/06 Longterm Goal (LTG) Pt will be able to get at least 15 sec hold B for SLS for better performance of functional activities. 01/06-23 sec R, L 28 sec LTG Duration achieved 01/06 Assessment Summary Assessment Pt has met most goals through progression of PT. She has not been able to balance recently d/t R toe injury but that is separate. She is doing well w/HEP w/min cues and is DC to [facility] Physical Therapy Plan Discharge Physical Therapy Discharge Reasons Goals Met
== END 2025-01-22 09:59 | disposition home or self-care (01) ==
LOC: PHYS 17:00
PROVIDERS: Family Provider Internal Medicine; PCP Internal Medicine; Referring Provider Physician Assistant; Visit Provider Physician Assistant
DX: S86.911D Strain of unspecified muscle(s) and tendon(s) at lower leg level, right leg, subsequent encounter (principal)
CPT/HCPCS: 97110; 97112; 97140; 97162; 97530; 97535

== ENCOUNTER → 2025-03-06 08:05 | Outpatient (CLI) | payer MEDICARE, OTHER, SELFPAY ==
--- NOTE | 2025-03-06 08:06 | DI.MG.S_ITS ---
MM screening mammo BI: 03/06/2025. BI-RADS: 1 CLINICAL: 79-year old female for bilateral screening mammogram. Tyrer-Cuzick lifetime risk of 1.8%. No personal or first-degree family history of breast cancer. PRIOR EXAMS 03/05/2024, 02/27/2023, 02/23/2022, 02/15/2021. MAMMOGRAPHY TECHNIQUE: 2D and 3D (tomosynthesis) digital mammographic views obtained, with additional images as needed for full coverage. Current study was also evaluated with a Computer Aided Detection (CAD) system. DENSITY D. The breasts are extremely dense, which lowers the sensitivity of mammography. MAMMOGRAPHY FINDINGS Bilateral: No suspicious mass, asymmetry, microcalcification, or other abnormality seen. IMPRESSION: * No evidence of malignancy. RECOMMENDATIONS Bilateral * Annual screening mammography. OVERALL ASSESSMENT CATEGORY BI-RADS-1: Negative. The [employer] recommends annual screening mammography beginning at age 40 for women with average risk of breast cancer. ELECTRONICALLY SIGNED: Phyllis Trujillo M.D. on 03/07/2025 at 12:04:42 AM PT Interpreting Station ID: [id number]
== END ==
LOC: MAMMO 08:05
PROVIDERS: Family Provider Internal Medicine; PCP Internal Medicine; Referring Provider Internal Medicine; Visit Provider Internal Medicine
DX: Z12.31 Encounter for screening mammogram for malignant neoplasm of breast (principal); R92.343 Mammographic extreme density, bilateral breasts
CPT/HCPCS: 77063; 77067